=== PATIENT | male | born 1950 | race Two or more races ===

== ENCOUNTER 2017-02-04 02:29 | Inpatient (IN) | payer OTHER, MEDICAID ==
[~2017-02-04] VITALS: Ht 162.6 cm; Wt 81.3 kg
[~2017-02-04 02:29] MED LIST: ALBU18 INH; ALBUAER3 IN; ASPI81CH43 PO; FLUT110A IN; LEVO500T21 PO; LOSA50TA6 PO; METF-370 PO; MORP1TAB12 PO; OXYC325T14 PO; PREG50CA PO
[2017-02-04] MEDS ORDERED: IPRATROPIUM BROM 0.5 MG/2.5ML INH SOL NEB ONE (03:30)
[2017-02-04] MEDS ORDERED: ALBUTEROL SULF 2.5 MG/0.5ML(0.5%) NEB SOLN NEB ONE (03:30)
[2017-02-04 03:40] LABS: Basophils # (auto) 0 uL; Basophils % (auto) 0.1 % (0.0-2.0); CONDITION Y; Eosinophils # (auto) 0 uL; Eosinophils % (auto) 0.1 % (0.0-7.0); Hematocrit 35.9 % (41.0-53.0); Hemoglobin 12.4 g/dL (13.5-17.5); Lymphocytes # (auto) 0.8 uL; Lymphocytes % (auto) 5.6 % (10.0-50.0); Mean Corpuscular Hemoglobin 32.6 pg (28.0-32.0); Mean Corpuscular Hgb Conc. 34.6 g/dL (32.0-36.0); Mean Corpuscular Volume 94.3 fL (80.0-100.0); Mean Platelet Volume 7.6 fL (7.4-10.4); Monocytes # (auto) 0.5 uL; Monocytes % (auto) 3.7 % (0.0-12.0); Neutrophils # (auto) 12.8 uL; Neutrophils % (auto) 90.5 % (37.0-80.0); Platelet Count (auto) 336 10^3/uL (140-450); White Blood Cell 14.1 10^3/uL (4.4-10.8)
[2017-02-04] MEDS ORDERED: methylPREDNISolone SOD SUCC 125 MG/2 ML VL IV ONE (03:45)
[2017-02-04 03:55] LABS: Albumin 3.2 g/dL (3.4-5.0); Anion Gap 11 (5-15); Aspartate Aminotransferase 25 U/L (15-37); BUN/Creatinine Ratio 11.4; Blood Urea Nitrogen 17 mg/dL (7-18); Calcium 8.2 mg/dL (8.5-10.1); Carbon Dioxide 24 mmol/L (21-32); Chloride 107 mmol/L (98-107); GFR African American 61 mL/min; GFR Non-African American 50 mL/min; Glucose 118 mg/dL (74-106); INR 0.93 (0.9-1.15); Magnesium 1.4 mg/dL (1.6-2.6); Partial Thromboplastin Time 22.6 sec (22.64-33.71); Potassium 3.2 mmol/L (3.5-5.1); Prothrombin Time 10.1 sec (9.37-12.3); Sodium 142 mmol/L (136-145)
[2017-02-04 04:00] LABS: Alkaline Phosphatase 89 U/L (45-117); Bilirubin, Total 0.3 mg/dL (0.2-1.0); Total Protein 7.5 g/dL (6.4-8.2)
[2017-02-04] MEDS ORDERED: IOHEXOL 350 MG/ML 100ML IJ ONE (04:36)
[2017-02-04 05:38] LABS: Urine RBC None Seen /hpf (0 - 3)
[2017-02-04 05:54] LABS: Urine Bilirubin Negative (Negative); Urine Blood Negative /uL (Negative); Urine Color Yellow (Yellow); Urine Glucose Normal (Normal); Urine Ketone Negative (Negative); Urine Nitrite Negative (Negative); Urine Urobilinogen Normal (Negative); Urine pH 6.5 (5.0-8.0)
[2017-02-04] MEDS ORDERED: LEVOFLOXACIN 750MG 150 ML IV ONE (06:00)
[2017-02-04] MEDS ORDERED: NITROGLYCERIN 0.4 MG SL TAB SL PRN (06:30)
[2017-02-04] MEDS ORDERED: ALBUTEROL SULF 2.5 MG/0.5ML(0.5%) NEB SOLN NEB PRN (06:30)
[2017-02-04] MEDS ORDERED: DEXTROSE (50%) 50ML SYRG IV PRN (06:30)
[2017-02-04] MEDS ORDERED: ONDANSETRON HCL 4 MG/2 ML VIAL IV PRN (06:30)
[2017-02-04] MEDS ORDERED: MORPHINE SULF INJ 2 MG/ML SYRINGE 1ML IV PRN ×2 (06:30)
[2017-02-04] MEDS ORDERED: ACETAMINOPHEN 325 MG TAB PO PRN (06:30)
[2017-02-04] MEDS ORDERED: IPRATROPIUM BROM 0.5 MG/2.5ML INH SOL NEB PRN (06:30)
[2017-02-04] MEDS ORDERED: ENOXAPARIN SOD 100 MG/1 ML SYRINGE SC ONE (06:30)
[2017-02-04] MEDS: MAGNESIUM SULFATE 1GM/100ML 100 ML IV SCH ×2 (06:30→07:30)
[2017-02-04] MEDS ORDERED: POTASSIUM CHL 20 Meq TABLET PO ONE (06:30)
[2017-02-04] MEDS ORDERED: TEMAZEPAM 15 MG CAP PO PRN (06:30)
[2017-02-04] MEDS: LOSARTAN POTASSIUM 50 MG TAB PO SCH (10:05)
[2017-02-04] MEDS: ENOXAPARIN SOD 40 MG/0.4 ML SYRINGE SC SCH (10:06)
[2017-02-04] MEDS: FAMOTIDINE 20 MG TAB PO SCH ×2 (10:06→22:02)
[2017-02-04 10:39] VITALS: BP 110/84
[2017-02-04 11:20] VITALS: BP 120/75
[2017-02-04 11:57] VITALS: BP 120/75
[2017-02-04] MEDS: InsuLIN REG 1unit/0.01ml Soln (100units/ml) SC SCH ×2 (12:00→17:40)
[2017-02-04] MEDS: ACCU-CHEK COMFORT CURVE STRIP VI SCH ×2 (12:00→17:31)
[2017-02-04 13:35] VITALS: BP 135/75
[2017-02-04 17:12] VITALS: BP 144/81
[2017-02-04 21:51] VITALS: BP 126/77
[2017-02-05 05:24] VITALS: BP 114/69
[2017-02-05] MEDS: ACCU-CHEK COMFORT CURVE STRIP VI SCH ×5 (06:00→23:55)
[2017-02-05] MEDS: InsuLIN REG 1unit/0.01ml Soln (100units/ml) SC SCH ×5 (06:00→23:55)
[2017-02-05 06:18] LABS: CONDITION Y; Hematocrit 38.4 % (41.0-53.0); Hemoglobin 12.9 g/dL (13.5-17.5); Mean Corpuscular Hemoglobin 32.8 pg (28.0-32.0); Mean Corpuscular Hgb Conc. 33.7 g/dL (32.0-36.0); Mean Corpuscular Volume 97.3 fL (80.0-100.0); Mean Platelet Volume 8.1 fL (7.4-10.4); Platelet Count (auto) 338 10^3/uL (140-450); Red Cell Distribution Width 13.1 % (11.6-16.0); SUSPECT SEE PRINTOUT
[2017-02-05 06:21] LABS: Metamyelocytes % 0; Myelocytes % 0; Promyelocytes % 0; Reactive Lymphocytes 0
[2017-02-05] MEDS: HYDROcodone-ACET 5/325MG TAB PO PRN ×3 (06:33→21:10)
[2017-02-05 06:40] LABS: Potassium 4.7 mmol/L (3.5-5.1)
[2017-02-05 06:44] LABS: Albumin 3.2 g/dL (3.4-5.0); BUN/Creatinine Ratio 18.9; Calcium 8.9 mg/dL (8.5-10.1)
[2017-02-05 06:46] LABS: Bilirubin, Total 0.4 mg/dL (0.2-1.0)
[2017-02-05 08:58] VITALS: BP 147/86
[2017-02-05 08:58] LABS: Platelet Estimate Adequate
[2017-02-05] MEDS: FAMOTIDINE 20 MG TAB PO SCH ×2 (09:32→21:10)
[2017-02-05] MEDS: LEVOFLOXACIN 500MG 100 ML IV SCH (09:32)
[2017-02-05] MEDS: LOSARTAN POTASSIUM 50 MG TAB PO SCH (09:32)
[2017-02-05] MEDS: ENOXAPARIN SOD 40 MG/0.4 ML SYRINGE SC SCH (09:33)
[2017-02-05 13:00] VITALS: BP 143/85
[2017-02-05] MEDS ORDERED: VANCOMYCIN PER PHARMACY 0 MG IV SCH (15:00)
[2017-02-05] MEDS: VANCOMYCIN 1GM/250ML D5W 250 ML IV SCH (16:02)
[2017-02-05 17:00] VITALS: BP 145/90
[2017-02-05 22:00] VITALS: BP 149/87
[2017-02-06] MEDS: VANCOMYCIN 1GM/250ML D5W 250 ML IV SCH ×2 (03:41→15:45)
[2017-02-06] MEDS: InsuLIN REG 1unit/0.01ml Soln (100units/ml) SC SCH ×4 (05:50→23:30)
[2017-02-06] MEDS: ACCU-CHEK COMFORT CURVE STRIP VI SCH ×4 (05:50→23:30)
[2017-02-06 06:11] VITALS: BP 144/74
[2017-02-06] MEDS: HYDROcodone-ACET 5/325MG TAB PO PRN ×3 (07:49→19:57)
[2017-02-06 08:27] VITALS: BP 130/84
[2017-02-06] MEDS: LEVOFLOXACIN 500MG 100 ML IV SCH (09:49)
[2017-02-06] MEDS: FAMOTIDINE 20 MG TAB PO SCH ×2 (09:49→21:33)
[2017-02-06] MEDS: LOSARTAN POTASSIUM 50 MG TAB PO SCH (09:49)
[2017-02-06] MEDS: ENOXAPARIN SOD 40 MG/0.4 ML SYRINGE SC SCH (09:49)
[2017-02-06 13:00] VITALS: BP 152/92
[2017-02-06 13:51] LABS: Basophils # (auto) 0 uL; CONDITION Y; Eosinophils # (auto) 0.1 uL; Eosinophils % (auto) 0.8 % (0.0-7.0); Hematocrit 43.2 % (41.0-53.0); Hemoglobin 14.7 g/dL (13.5-17.5); Lymphocytes # (auto) 2.5 uL; Lymphocytes % (auto) 22.4 % (10.0-50.0); Mean Corpuscular Hemoglobin 33.4 pg (28.0-32.0); Mean Corpuscular Hgb Conc. 34.1 g/dL (32.0-36.0); Mean Corpuscular Volume 97.9 fL (80.0-100.0); Mean Platelet Volume 7.6 fL (7.4-10.4); Monocytes # (auto) 0.3 uL; Monocytes % (auto) 3.1 % (0.0-12.0); Neutrophils # (auto) 8.1 uL; Neutrophils % (auto) 73.7 % (37.0-80.0); Platelet Count (auto) 286 10^3/uL (140-450); Red Cell Distribution Width 13.6 % (11.6-16.0)
[2017-02-06 16:49] VITALS: BP 154/97
[2017-02-06] MEDS ORDERED: ALBUTEROL SULF 2.5 MG/0.5ML(0.5%) NEB SOLN NEB PRN (19:15)
[2017-02-06] MEDS ORDERED: IPRATROPIUM BROM 0.5 MG/2.5ML INH SOL NEB ONE (19:15)
[2017-02-06] MEDS ORDERED: ALBUTEROL SULF 2.5 MG/0.5ML(0.5%) NEB SOLN NEB ONE (19:15)
[2017-02-06 19:39] LABS: Basophils # (auto) 0 uL; Basophils % (auto) 0.4 % (0.0-2.0); CONDITION Y; Eosinophils # (auto) 0.1 uL; Hemoglobin 14.1 g/dL (13.5-17.5); Lymphocytes % (auto) 24.7 % (10.0-50.0); Mean Corpuscular Hemoglobin 32.8 pg (28.0-32.0); Mean Corpuscular Hgb Conc. 34.4 g/dL (32.0-36.0); Mean Corpuscular Volume 95.4 fL (80.0-100.0); Mean Platelet Volume 7.7 fL (7.4-10.4); Monocytes # (auto) 0.5 uL; Monocytes % (auto) 4.4 % (0.0-12.0); Neutrophils # (auto) 8.5 uL; Neutrophils % (auto) 69.5 % (37.0-80.0); Platelet Count (auto) 412 10^3/uL (140-450); Red Cell Distribution Width 13.2 % (11.6-16.0); White Blood Cell 12.2 10^3/uL (4.4-10.8)
[2017-02-06 21:33] VITALS: BP 135/80
[2017-02-06] MEDS: methylPREDNISolone SOD SUCC 40 MG/ML VL IV SCH (21:33)
[2017-02-07 04:08] LABS: Basophils # (auto) 0 uL; CONDITION Y; Eosinophils # (auto) 0 uL; Hematocrit 42.4 % (41.0-53.0); Hemoglobin 14.4 g/dL (13.5-17.5); Lymphocytes # (auto) 1.2 uL; Lymphocytes % (auto) 11.1 % (10.0-50.0); Mean Corpuscular Hgb Conc. 34.1 g/dL (32.0-36.0); Mean Corpuscular Volume 96.7 fL (80.0-100.0); Monocytes # (auto) 0.1 uL; Monocytes % (auto) 0.7 % (0.0-12.0); Neutrophils # (auto) 9.5 uL; Neutrophils % (auto) 88.2 % (37.0-80.0); Platelet Count (auto) 379 10^3/uL (140-450); Red Cell Distribution Width 13.4 % (11.6-16.0); White Blood Cell 10.7 10^3/uL (4.4-10.8)
[2017-02-07] MEDS: VANCOMYCIN 1GM/250ML D5W 250 ML IV SCH (04:43)
[2017-02-07 05:14] VITALS: BP 140/96
[2017-02-07] MEDS: ACCU-CHEK COMFORT CURVE STRIP VI SCH ×2 (05:47→12:00)
[2017-02-07] MEDS: methylPREDNISolone SOD SUCC 40 MG/ML VL IV SCH (05:47)
[2017-02-07] MEDS: HYDROcodone-ACET 5/325MG TAB PO PRN ×2 (05:47→10:02)
[2017-02-07] MEDS: InsuLIN REG 1unit/0.01ml Soln (100units/ml) SC SCH ×2 (05:47→12:00)
[2017-02-07] MEDS: IPRATROPIUM BROM 0.5 MG/2.5ML INH SOL NEB SCH ×2 (07:25)
[2017-02-07 08:30] VITALS: BP 161/69
[2017-02-07] MEDS: ENOXAPARIN SOD 40 MG/0.4 ML SYRINGE SC SCH (10:01)
[2017-02-07] MEDS: LEVOFLOXACIN 500MG 100 ML IV SCH (10:01)
[2017-02-07] MEDS: LOSARTAN POTASSIUM 50 MG TAB PO SCH (10:01)
[2017-02-07] MEDS: FAMOTIDINE 20 MG TAB PO SCH (10:01)
[2017-02-07] MEDS ORDERED: DOXY-216 PO (10:51)
[2017-02-07] MEDS ORDERED: LEVO750T64 PO (10:51)
[2017-02-07] MEDS ORDERED: VANCOMYCIN 1,250 MG in D5W 5% 250 ML IV SCH (16:00)
== END 2017-02-07 12:44 | disposition home or self-care (01) | DRG 871 ==
LOC: ER 02:29 → EDBD 02:29 → TELE 02:30 → TELE-E-ADS 10:45 → TELE-WESTW 13:59 → WEST WING 02-06 02:13
PROVIDERS: ADMIT Nurse Practitioner; ATTEND Internal Medicine
DX: A41.9 Sepsis, unspecified organism (principal); J18.1 Lobar pneumonia, unspecified organism; J96.00 Acute respiratory failure, unspecified whether with hypoxia or hypercapnia; E44.1 Mild protein-calorie malnutrition; J45.901 Unspecified asthma with (acute) exacerbation; J44.0 Chronic obstructive pulmonary disease with (acute) lower respiratory infection; J44.1 Chronic obstructive pulmonary disease with (acute) exacerbation; J98.11 Atelectasis; E66.9 Obesity, unspecified; K70.30 Alcoholic cirrhosis of liver without ascites; B19.20 Unspecified viral hepatitis C without hepatic coma; E11.21 Type 2 diabetes mellitus with diabetic nephropathy; E11.65 Type 2 diabetes mellitus with hyperglycemia; E78.5 Hyperlipidemia, unspecified; E83.42 Hypomagnesemia; E87.6 Hypokalemia; I12.9 Hypertensive chronic kidney disease with stage 1 through stage 4 chronic kidney disease, or unspecified chronic kidney disease; J06.9 Acute upper respiratory infection, unspecified; M19.90 Unspecified osteoarthritis, unspecified site; E78.00 Pure hypercholesterolemia, unspecified; K44.9 Diaphragmatic hernia without obstruction or gangrene; E87.8 Other disorders of electrolyte and fluid balance, not elsewhere classified; K76.0 Fatty (change of) liver, not elsewhere classified; N18.3 Chronic kidney disease, stage 3 (moderate); E11.22 Type 2 diabetes mellitus with diabetic chronic kidney disease; T38.0X5A Adverse effect of glucocorticoids and synthetic analogues, initial encounter; Z68.30 Body mass index [BMI] 30.0-30.9, adult; Z83.3 Family history of diabetes mellitus; Z80.9 Family history of malignant neoplasm, unspecified; Z72.89 Other problems related to lifestyle
CPT/HCPCS: 36415; 71010; 71020; 71275; 80053; 80202; 81001; 82962; 83735; 84132; 84484; 85007; 85025; 85027; 85379; 85610; 85730; 87040; 93005; 94640; 94761; 96365; 96366; 96375; J1815; J1956; J7060

== ENCOUNTER 2017-03-16 05:51 | Inpatient (IN) | payer OTHER, MEDICAID ==
[~2017-03-16] VITALS: Ht 153.9 cm; Wt 82.4 kg
[~2017-03-16 05:51] MED LIST changes: +DOXY-216 PO; -LEVO500T21 PO; +LEVO750T64 PO
[2017-03-16 06:52] LABS: Basophils # (auto) 0 uL; Basophils % (auto) 0.2 % (0.0-2.0); CONDITION Y; Eosinophils # (auto) 0 uL; Eosinophils % (auto) 0.3 % (0.0-7.0); Hematocrit 38.3 % (41.0-53.0); Hemoglobin 13.6 g/dL (13.5-17.5); Lymphocytes # (auto) 0.8 uL; Lymphocytes % (auto) 5.8 % (10.0-50.0); Mean Corpuscular Hemoglobin 33.7 pg (28.0-32.0); Mean Corpuscular Hgb Conc. 35.7 g/dL (32.0-36.0); Mean Corpuscular Volume 94.6 fL (80.0-100.0); Mean Platelet Volume 7.4 fL (7.4-10.4); Monocytes # (auto) 0.5 uL; Monocytes % (auto) 3.4 % (0.0-12.0); Neutrophils # (auto) 12.3 uL; Neutrophils % (auto) 90.3 % (37.0-80.0); Platelet Count (auto) 263 10^3/uL (140-450); Red Cell Distribution Width 13.1 % (11.6-16.0); White Blood Cell 13.6 10^3/uL (4.4-10.8)
[2017-03-16 06:59] LABS: INR 0.92 (0.9-1.15); Partial Thromboplastin Time 22.2 sec (22.64-33.71)
[2017-03-16 07:18] LABS: Alkaline Phosphatase 109 U/L (45-117); Anion Gap 10 (5-15); Aspartate Aminotransferase 59 U/L (15-37); Blood Urea Nitrogen 9 mg/dL (7-18); Carbon Dioxide 22 mmol/L (21-32); Chloride 107 mmol/L (98-107); GFR African American 96 mL/min; GFR Non-African American 80 mL/min; Glucose 139 mg/dL (74-106); Sodium 139 mmol/L (136-145)
[2017-03-16 07:19] LABS: Albumin 3.5 g/dL (3.4-5.0); Bilirubin, Total 0.5 mg/dL (0.2-1.0); Calcium 8.7 mg/dL (8.5-10.1); Magnesium 1.5 mg/dL (1.6-2.6); Total Protein 7.6 g/dL (6.4-8.2)
[2017-03-16] MEDS ORDERED: SODIUM CHLORIDE 0.9% 1,000 ML IV ONE (07:27)
[2017-03-16 07:55] LABS: Urine Bilirubin Negative (Negative); Urine Blood Negative /uL (Negative); Urine Color Yellow (Yellow); Urine Glucose Normal (Normal); Urine Ketone Negative (Negative); Urine Nitrite Negative (Negative); Urine RBC <1 /hpf (0 - 3); Urine Urobilinogen Normal (Negative)
[2017-03-16] MEDS: POTASSIUM CHL 20MEQ/100ML 100 ML IV SCH ×2 (09:00→11:03)
[2017-03-16] MEDS: SODIUM CHLORIDE 0.9% 1,000 ML IV SCH (13:15)
[2017-03-16] MEDS: MAGNESIUM SULFATE 1GM/100ML 100 ML IV SCH ×2 (13:20→14:54)
[2017-03-16] MEDS ORDERED: MORPHINE SULF INJ 2 MG/ML SYRINGE 1ML IV PRN (13:45)
[2017-03-16] MEDS ORDERED: LACTULOSE 20Gm/30ML SOLN PO PRN (13:45)
[2017-03-16] MEDS ORDERED: ALBUTEROL SULF 2.5 MG/0.5ML(0.5%) NEB SOLN NEB PRN (13:45)
[2017-03-16] MEDS ORDERED: LORazepam 2MG/ML-1ML VIAL IV PRN (13:45)
[2017-03-16] MEDS ORDERED: MORPHINE SULFATE 4 MG/ML SYRG IV PRN (13:45)
[2017-03-16] MEDS ORDERED: PROMETHAZINE HCL 25 MG/ML 1ML IV PRN (13:45)
[2017-03-16] MEDS ORDERED: NITROGLYCERIN 0.4 MG SL TAB SL PRN (13:45)
[2017-03-16] MEDS ORDERED: DEXTROSE (50%) 50ML SYRG IV PRN (13:45)
[2017-03-16 14:04] LABS: Allen Test Yes; Base Excess -0.5 mmol/L (-2.0-2.0); Blood 02Sat 94.8 % (96-100); Blood COHb 0.3 % (0.5-1.5); Blood MetHb 0.3 % (0.0-1.5); HCO3 24.4 mmol/L (22-26.0); HHb 5.2 % (0.0-5.0); MODE NASAL CANNULA; O2Hb 94.2 % (94.0-97.0); PCO2 40.8 mmHg (35.0-45.0); PCO2(T) 40.8 mmHg (35.0-45.0); PO2 78.3 mmHg (80.0-100.0); PO2(T) 78.3 mmHg (80.0-100.0); Room 1020-ERT; Sample Type Arterial; pH 7.394 (7.350-7.450)
[2017-03-16 15:18] LABS: Temperature: 20.3 C (20.0-25.0)
[2017-03-16 16:39] VITALS: BP 126/80
[2017-03-16] MEDS: InsuLIN REG 1unit/0.01ml Soln (100units/ml) SC SCH (17:43)
[2017-03-16] MEDS: ACCU-CHEK COMFORT CURVE STRIP VI SCH (17:43)
[2017-03-16] MEDS: MORPHINE SULF INJ 2 MG/ML SYRINGE 1ML IV PRN (17:44)
[2017-03-16 18:10] VITALS: BP 138/81
[2017-03-16] MEDS: ALBUTEROL SULF 2.5 MG/0.5ML(0.5%) NEB SOLN NEB SCH (18:53)
[2017-03-16 20:30] VITALS: BP 138/81
[2017-03-16] MEDS ORDERED: CYANOCOBALAMIN (B-12) 1000 MCG/1 ML VIAL IM ONE (21:45)
[2017-03-16] MEDS ORDERED: HALOPERIDOL LACTATE 5 MG/ML INJ VIAL IM PRN (21:45)
[2017-03-16] MEDS: ATORVASTATIN 20 MG TAB PO SCH (21:53)
[2017-03-16 22:00] VITALS: BP 128/72
[2017-03-17] MEDS: SODIUM CHLORIDE 0.9% 1,000 ML IV SCH ×2 (02:04→14:34)
[2017-03-17 05:00] VITALS: BP 133/62
[2017-03-17] MEDS: ACCU-CHEK COMFORT CURVE STRIP VI SCH ×4 (06:00→16:46)
[2017-03-17] MEDS: InsuLIN REG 1unit/0.01ml Soln (100units/ml) SC SCH ×4 (06:00→17:43)
[2017-03-17 06:34] LABS: Basophils # (auto) 0 uL; Basophils % (auto) 0.4 % (0.0-2.0); CONDITION Y; Eosinophils # (auto) 0.1 uL; Eosinophils % (auto) 0.7 % (0.0-7.0); Hematocrit 36.3 % (41.0-53.0); Hemoglobin 12.6 g/dL (13.5-17.5); Lymphocytes % (auto) 14.7 % (10.0-50.0); Mean Corpuscular Hemoglobin 33.3 pg (28.0-32.0); Mean Corpuscular Hgb Conc. 34.7 g/dL (32.0-36.0); Mean Corpuscular Volume 95.9 fL (80.0-100.0); Mean Platelet Volume 7.6 fL (7.4-10.4); Monocytes # (auto) 0.7 uL; Monocytes % (auto) 4.8 % (0.0-12.0); Neutrophils # (auto) 10.9 uL; Neutrophils % (auto) 79.4 % (37.0-80.0); Platelet Count (auto) 237 10^3/uL (140-450); Red Cell Distribution Width 13.3 % (11.6-16.0); White Blood Cell 13.7 10^3/uL (4.4-10.8)
[2017-03-17] MEDS: MORPHINE SULF INJ 2 MG/ML SYRINGE 1ML IV PRN ×2 (06:52→10:57)
[2017-03-17 07:15] LABS: Albumin 3.1 g/dL (3.4-5.0); BUN/Creatinine Ratio 11.4; Bilirubin, Total 0.5 mg/dL (0.2-1.0); Potassium 3.7 mmol/L (3.5-5.1); Total Protein 7.2 g/dL (6.4-8.2)
[2017-03-17] MEDS: ALBUTEROL SULF 2.5 MG/0.5ML(0.5%) NEB SOLN NEB SCH ×3 (07:34→18:55)
[2017-03-17 08:00] VITALS: BP 138/81
[2017-03-17 09:00] VITALS: BP 134/88
[2017-03-17] MEDS: CYANOCOBALAMIN 500 MCG TAB PO SCH (10:00)
[2017-03-17] MEDS: ENOXAPARIN SOD 40 MG/0.4 ML SYRINGE SC SCH (10:01)
[2017-03-17] MEDS: ASPirin 81 mg TAB PO SCH (10:01)
[2017-03-17] MEDS: FOLIC ACID 1 MG in D5W 5% 50 ML IV SCH (11:03)
[2017-03-17 12:55] VITALS: BP 130/84
[2017-03-17 17:00] VITALS: BP 152/96
[2017-03-17] MEDS ORDERED: traMADol HCL 50 MG TAB PO PRN (17:30)
[2017-03-17] MEDS: KETOROLAC TROMETH 30 MG/ML 1ML VIAL IV PRN (20:24)
[2017-03-17] MEDS: ATORVASTATIN 20 MG TAB PO SCH (21:50)
[2017-03-17 22:00] VITALS: BP 139/88
[2017-03-18] MEDS: ACCU-CHEK COMFORT CURVE STRIP VI SCH ×3 (00:03→12:00)
[2017-03-18] MEDS: ALBUTEROL SULF 2.5 MG/0.5ML(0.5%) NEB SOLN NEB SCH ×3 (00:25→12:01)
[2017-03-18] MEDS: SODIUM CHLORIDE 0.9% 1,000 ML IV SCH ×2 (03:04→15:34)
[2017-03-18] MEDS: KETOROLAC TROMETH 30 MG/ML 1ML VIAL IV PRN (04:10)
[2017-03-18 05:02] VITALS: BP 137/86
[2017-03-18] MEDS: InsuLIN REG 1unit/0.01ml Soln (100units/ml) SC SCH ×3 (05:55→12:00)
[2017-03-18 08:00] VITALS: BP 127/74
[2017-03-18] MEDS: ENOXAPARIN SOD 40 MG/0.4 ML SYRINGE SC SCH (09:59)
[2017-03-18] MEDS: CYANOCOBALAMIN 500 MCG TAB PO SCH (09:59)
[2017-03-18] MEDS: ASPirin 81 mg TAB PO SCH (09:59)
[2017-03-18] MEDS: FOLIC ACID 1 MG in D5W 5% 50 ML IV SCH (10:08)
[2017-03-18 10:27] VITALS: BP 141/84
[2017-03-18 13:31] VITALS: BP 151/95
[2017-03-18 14:26] VITALS: BP 151/95
== END 2017-03-18 16:15 | disposition home or self-care (01) | DRG 92 ==
LOC: EDBD 05:51 → ER 05:57 → TELE 05:58 → TELE-E-ADS 15:58 → TELE-WESTW 17:32
PROVIDERS: ADMIT Internal Medicine; ATTEND Internal Medicine Pulmonary Disease
DX: G92 Toxic encephalopathy (principal); E44.1 Mild protein-calorie malnutrition; E87.6 Hypokalemia; J44.9 Chronic obstructive pulmonary disease, unspecified; M19.90 Unspecified osteoarthritis, unspecified site; E11.22 Type 2 diabetes mellitus with diabetic chronic kidney disease; N18.9 Chronic kidney disease, unspecified; I12.9 Hypertensive chronic kidney disease with stage 1 through stage 4 chronic kidney disease, or unspecified chronic kidney disease; E66.9 Obesity, unspecified; E78.5 Hyperlipidemia, unspecified; B19.20 Unspecified viral hepatitis C without hepatic coma; I70.0 Atherosclerosis of aorta; E83.42 Hypomagnesemia; F17.200 Nicotine dependence, unspecified, uncomplicated; F10.10 Alcohol abuse, uncomplicated; F41.9 Anxiety disorder, unspecified; M54.9 Dorsalgia, unspecified; R44.1 Visual hallucinations; T40.605A Adverse effect of unspecified narcotics, initial encounter; D72.829 Elevated white blood cell count, unspecified; Z88.6 Allergy status to analgesic agent; Z88.2 Allergy status to sulfonamides; Z83.3 Family history of diabetes mellitus; Z88.8 Allergy status to other drugs, medicaments and biological substances; Z68.34 Body mass index [BMI] 34.0-34.9, adult
CPT/HCPCS: 36415; 36600; 70450; 71010; 80053; 80307; 80320; 81001; 82140; 82550; 82607; 82746; 82805; 82962; 83036; 83605; 83735; 84443; 84484; 85025; 85610; 85652; 85730; 92610; 93005; 93306; 93886; 94640; 94761; 95819; 96361; 96365; 96367; J1885; J3480; J7060

== ENCOUNTER 2018-09-23 18:57 | Emergency (ER) | payer OTHER, MEDICAID ==
[~2018-09-23] VITALS: Ht 154.9 cm; Wt 88.0 kg
[~2018-09-23 18:57] MED LIST changes: +LOSA-46 PO; -LOSA50TA6 PO; -MORP1TAB12 PO; -OXYC325T14 PO
[2018-09-23 19:13] VITALS: BP 131/86
== END 2018-09-23 23:06 | disposition left against medical advice (07) ==
LOC: ER 19:00
DX: R06.02 Shortness of breath (principal); Z53.21 Procedure and treatment not carried out due to patient leaving prior to being seen by health care provider
CPT/HCPCS: 71045; 93005

== ENCOUNTER 2019-08-05 18:56 | Emergency (ER) | payer OTHER, MEDICAID ==
[~2019-08-05] VITALS: Ht 162.6 cm; Wt 87.1 kg
[~2019-08-05 18:56] MED LIST changes: -DOXY-216 PO; +DOXY-286 PO; -LOSA-46 PO; +LOSA-69 PO
[2019-08-05 19:04] VITALS: BP 147/72
[2019-08-05 19:25] LABS: Basophils # (auto) 0 uL; Basophils % (auto) 0.5 % (0.0-2.0); Eosinophils # (auto) 0.3 uL; Eosinophils % (auto) 4.4 % (0.0-7.0); Hematocrit 38.7 % (41.0-53.0); Hemoglobin 13.3 g/dL (13.5-17.5); Lymphocytes # (auto) 2.5 uL; Lymphocytes % (auto) 39.6 % (10.0-50.0); Mean Corpuscular Hemoglobin 33.1 pg (28.0-32.0); Mean Corpuscular Hgb Conc. 34.5 g/dL (32.0-36.0); Mean Corpuscular Volume 95.9 fL (80.0-100.0); Monocytes # (auto) 0.6 uL; Monocytes % (auto) 9.7 % (0.0-12.0); Neutrophils # (auto) 2.9 uL; Neutrophils % (auto) 45.8 % (37.0-80.0); Nucleated Red Blood Cells % 0.2 %; Platelet Count (auto) 317 10^3/uL (140-450); Red Blood Cells 4.03 10^6/uL (4.5-5.90); Red Cell Distribution Width 12.6 % (11.8-14.3); White Blood Cell 6.2 10^3/uL (4.4-10.8)
[2019-08-05 19:39] LABS: Alanine Aminotransferase 24 U/L (16-61); Albumin 3.4 g/dL (3.4-5.0); Anion Gap 6 (5-15); Aspartate Aminotransferase 15 U/L (15-37); BUN/Creatinine Ratio 21.3; Blood Urea Nitrogen 19 mg/dL (7-18); Calcium 8.8 mg/dL (8.5-10.1); Carbon Dioxide 27 mmol/L (21-32); Chloride 108 mmol/L (98-107); GFR African American 109 mL/min; GFR Non-African American 90 mL/min; Glucose 108 mg/dL (74-106); Potassium 3.7 mmol/L (3.5-5.1); Sodium 141 mmol/L (136-145)
[2019-08-05 19:44] LABS: Alkaline Phosphatase 94 U/L (45-117); Bilirubin, Total 0.2 mg/dL (0.2-1.0); Total Protein 8.2 g/dL (6.4-8.2)
[2019-08-06 00:29] LABS: Urine Bacteria NONE SEEN /hpf (None Seen); Urine Blood Negative /uL (Negative); Urine Mucus FEW (None Seen); Urine Specific Gravity 1.026 (1.001-1.035); Urine WBC 2 /hpf (0 - 3)
== END 2019-08-06 01:15 | disposition home or self-care (01) ==
LOC: ER 18:57
DX: J06.9 Acute upper respiratory infection, unspecified (principal); J44.9 Chronic obstructive pulmonary disease, unspecified; I10 Essential (primary) hypertension; E11.9 Type 2 diabetes mellitus without complications; M19.90 Unspecified osteoarthritis, unspecified site
CPT/HCPCS: 36415; 71046; 80053; 81001; 84484; 85025; 93005

== ENCOUNTER 2020-03-24 08:26 | Inpatient (IN) | payer OTHER, MEDICAID ==
[~2020-03-24] VITALS: Ht 165.1 cm; Wt 92.1 kg
[2020-03-24] MEDS ORDERED: ACETAMINOPHEN 500 MG TAB PO ONE (08:30)
[2020-03-24] MEDS ORDERED: DexAMETHasone SOD PHOS 10MG/1ML VIAL INJ IV ONE (08:45)
[2020-03-24] MEDS ORDERED: cefTRIAXone 1GM/50ML D5W 50 ML IV ONE ×2 (08:45→12:15)
[2020-03-24 08:59] LABS: Basophils # (auto) 0 10 ^3/uL (0-0.2); Basophils % (auto) 0.3 % (0.0-2.0); Eosinophils # (auto) 0 10 ^3/uL (0-0.8); Eosinophils % (auto) 0.3 % (0.0-7.0); Hematocrit 40.1 % (41.0-53.0); Hemoglobin 13.4 g/dL (13.5-17.5); Lymphocytes % (auto) 6.7 % (10.0-50.0); Mean Corpuscular Hemoglobin 32.1 pg (28.0-32.0); Mean Corpuscular Hgb Conc. 33.5 g/dL (32.0-36.0); Mean Corpuscular Volume 95.8 fL (80.0-100.0); Monocytes # (auto) 0.7 10 ^3/uL (0-1.3); Monocytes % (auto) 4.9 % (0.0-12.0); Neutrophils # (auto) 13.1 10 ^3/uL (1.6-8.6); Neutrophils % (auto) 87.8 % (37.0-80.0); Platelet Count (auto) 254 10^3/uL (140-450); Red Blood Cells 4.18 10^6/uL (4.5-5.90); Red Cell Distribution Width 12.9 % (11.8-14.3); White Blood Cell 14.9 10^3/uL (4.4-10.8)
[2020-03-24 09:14] LABS: INR 0.95 (0.9-1.15)
[2020-03-24 09:24] LABS: Albumin 3.4 g/dL (3.4-5.0); Anion Gap 6 (5-15); Blood Urea Nitrogen 16 mg/dL (7-18); Calcium 8.9 mg/dL (8.5-10.1); Carbon Dioxide 25 mmol/L (21-32); Chloride 105 mmol/L (98-107); Glucose 151 mg/dL (74-106); Magnesium 1.9 mg/dL (1.6-2.6); Potassium 3.7 mmol/L (3.5-5.1); Sodium 136 mmol/L (136-145)
[2020-03-24 09:32] LABS: Alanine Aminotransferase 23 U/L (16-61); Alkaline Phosphatase 91 U/L (45-117); Aspartate Aminotransferase 17 U/L (15-37); BUN/Creatinine Ratio 13.8; Bilirubin, Total 0.5 mg/dL (0.2-1.0); CRP High Sensitivity 0.67 mg/dL (< 0.3); GFR African American 81 mL/min; GFR Non-African American 67 mL/min; Lactate Dehydrogenase 184 U/L (87-241); Total Protein 8.2 g/dL (6.4-8.2)
[2020-03-24 10:23] LABS: Urine Bacteria NONE SEEN /hpf (None Seen); Urine Blood TRACE /uL (Negative); Urine Specific Gravity 1.013 (1.001-1.035); Urine WBC 1 /hpf (0 - 3)
[2020-03-24] MEDS ORDERED: hydrALAZINE HCL 20 MG/ML VL IV PRN (11:45)
[2020-03-24] MEDS ORDERED: SPIRONOLACTONE 25 MG TAB PO ONE ×2 (11:45→12:15)
[2020-03-24] MEDS ORDERED: ONDANSETRON HCL 4 MG/2 ML VIAL IV PRN (12:00)
[2020-03-24] MEDS ORDERED: DOCUSATE SOD 100 MG CAP PO PRN (12:00)
[2020-03-24] MEDS ORDERED: ACETAMINOPHEN 500 MG TAB PO PRN (12:00)
[2020-03-24] MEDS ORDERED: DEXTROSE (50%) 50ML SYRG IV PRN (12:00)
[2020-03-24] MEDS ORDERED: MORPHINE SULF INJ 2 MG/ML SYRINGE 1ML IV PRN ×2 (12:00)
[2020-03-24] MEDS ORDERED: NITROGLYCERIN 0.4 MG SL TAB SL PRN (12:00)
[2020-03-24] MEDS ORDERED: LORazepam 0.5 MG TAB PO PRN (12:00)
[2020-03-24] MEDS: DULoxetine HCL 30 MG CAP PO ONE ×2 (12:15→12:39)
[2020-03-24] MEDS ORDERED: LOSARTAN POTASSIUM 50 MG TAB PO ONE (12:15)
[2020-03-24] MEDS ORDERED: ZINC SULFATE 220mg CAP or TAB PO ONE (12:15)
[2020-03-24] MEDS ORDERED: CHOLECALCIFEROL (VITD3) 2,000 UNIT CAP PO ONE (12:15)
[2020-03-24] MEDS ORDERED: ASCORBIC ACID 1,000 MG TAB PO ONE (12:15)
[2020-03-24] MEDS ORDERED: ASPirin 81 mg TAB PO ONE (12:15)
[2020-03-24] MEDS ORDERED: LOSA-39 PO (12:52)
[2020-03-24] MEDS ORDERED: ACET-6 PO (12:52)
[2020-03-24] MEDS ORDERED: BECL40AE11 IN (12:53)
[2020-03-24] MEDS ORDERED: DOCU1CAP31 PO (12:54)
[2020-03-24] MEDS ORDERED: SENN1TAB14 PO (12:55)
[2020-03-24] MEDS ORDERED: MORP1TAB12 PO (12:56)
[2020-03-24] MEDS ORDERED: OXYC325T14 PO (12:57)
[2020-03-24] MEDS ORDERED: DICL1GEL50 TD (12:58)
[2020-03-24] MEDS ORDERED: DULO1CAP4 PO (12:58)
[2020-03-24] MEDS: HYDROcodone-ACET 5/325MG TAB PO PRN (13:05)
[2020-03-24] MEDS ORDERED: ALBUTEROL SULF HFA 90MCG INH 200DOSE IN SCH (14:00)
[2020-03-24] MEDS ORDERED: GABAPENTIN 300 MG CAP PO SCH (14:00)
[2020-03-24] MEDS: GABAPENTIN 300 MG CAP PO SCH ×2 (14:03→21:46)
[2020-03-24 16:34] LABS: Alcohol, Urine < 3.0 mg/dL (0-10); Amphetamine Screen, Urine NEGATIVE (NEGATIVE); Barbiturate Scree,Urine NEGATIVE (NEGATIVE); Benzodiazephine Screen, Urine NEGATIVE (NEGATIVE); Cannabinoid Screen, Urine NEGATIVE (NEGATIVE); Cocaine Screen, Urine NEGATIVE (NEGATIVE); Opiate Scree,Urine POSITIVE (NEGATIVE); Phencyclidine Screen, Urine NEGATIVE (NEGATIVE)
[2020-03-24] MEDS: ACCU-CHEK COMFORT CURVE STRIP VI SCH ×2 (17:00→21:46)
--- NOTE | 2020-03-24 17:00 | NUR ---
Telemetry admit from [facility] admitted to Telemetry unit after SBAR received. Patient oriented to Nuha chow RN, unit, room, bed, and unit policies regarding patient care and visiting hours. Patient now on continuous telemetry monitoring, tele box # 39 and telemetry reading on arrival to unit is 88. Patient placed on bedside oxygen at 4L NC, weighed by bedscale and encouraged to call if they need something. All questions and concerns addressed, patient verbalized understanding.
[2020-03-24 18:20] LABS: Cholesterol 181 mg/dL (< 200)
[2020-03-24] MEDS: InsuLIN REG 1unit/0.01ml Soln (100units/ml) SC SCH ×2 (18:24→21:48)
[2020-03-24 18:28] LABS: HDL Cholesterol 54 mg/dL (40-59); LDL Cholesterol 126 mg/dL (< 100); Triglycerides 46 mg/dL (< 150)
[2020-03-24 20:00] VITALS: BP 153/89
[2020-03-24] MEDS ORDERED: BUDESONIDE (INHALATION) 180 MCG IH IN SCH (22:00)
[2020-03-24 23:16] VITALS: BP 153/89
[2020-03-25] VITALS (7 sets, daily range): BP systolic 140–157; BP diastolic 82–96
[2020-03-25] MEDS: ACCU-CHEK COMFORT CURVE STRIP VI SCH ×4 (06:05→21:21)
[2020-03-25] MEDS: GABAPENTIN 300 MG CAP PO SCH ×3 (06:05→21:20)
[2020-03-25] MEDS: InsuLIN REG 1unit/0.01ml Soln (100units/ml) SC SCH ×4 (06:05→21:20)
[2020-03-25 06:26] LABS: Basophils # (auto) 0 10 ^3/uL (0-0.2); Eosinophils # (auto) 0 10 ^3/uL (0-0.8); Hematocrit 38.7 % (41.0-53.0); Hemoglobin 13.8 g/dL (13.5-17.5); Lymphocytes # (auto) 1.4 10 ^3/uL (0.4-5.4); Lymphocytes % (auto) 8.7 % (10.0-50.0); Mean Corpuscular Hgb Conc. 35.6 g/dL (32.0-36.0); Mean Corpuscular Volume 95.7 fL (80.0-100.0); Monocytes # (auto) 0.6 10 ^3/uL (0-1.3); Neutrophils # (auto) 14.3 10 ^3/uL (1.6-8.6); Neutrophils % (auto) 87.3 % (37.0-80.0); Nucleated Red Blood Cells % 0.1 %; Platelet Count (auto) 242 10^3/uL (140-450); Red Blood Cells 4.05 10^6/uL (4.5-5.90); Red Cell Distribution Width 12.6 % (11.8-14.3); White Blood Cell 16.4 10^3/uL (4.4-10.8)
[2020-03-25 06:36] LABS: Albumin 2.9 g/dL (3.4-5.0); Calcium 8.7 mg/dL (8.5-10.1); Potassium 3.9 mmol/L (3.5-5.1)
[2020-03-25 06:40] LABS: Bilirubin, Total 0.6 mg/dL (0.2-1.0); Total Protein 7.6 g/dL (6.4-8.2)
--- NOTE | 2020-03-25 07:28 | NUR ---
received patient from [facility] shift rn. Patient asleep been easily aroused. patient is alert and oriented, slight signs of forgetfulness noted. Plan of care discussed. Bed in low and locked position, call light and phone within reach. Patient remains on 2L NC. will continue to monitor q1hr and prn.
[2020-03-25] MEDS: HYDROcodone-ACET 5/325MG TAB PO PRN ×2 (08:22→19:57)
[2020-03-25] MEDS ORDERED: cefTRIAXone 1GM/50ML D5W 50 ML IV SCH (09:00)
[2020-03-25] MEDS: LOSARTAN POTASSIUM 50 MG TAB PO SCH (09:49)
[2020-03-25] MEDS: ASPirin 81 mg TAB PO SCH (09:49)
[2020-03-25] MEDS: SPIRONOLACTONE 25 MG TAB PO SCH (09:50)
[2020-03-25] MEDS: DULoxetine HCL 30 MG CAP PO SCH (09:50)
[2020-03-25] MEDS ORDERED: ASCORBIC ACID 1,000 MG TAB PO SCH (10:00)
[2020-03-25] MEDS ORDERED: AZITHROMYCIN 500MG/ 250ML 250 ML IV SCH (10:00)
[2020-03-25] MEDS ORDERED: ZINC SULFATE 220mg CAP or TAB PO SCH (10:00)
[2020-03-25] MEDS ORDERED: CHOLECALCIFEROL (VITD3) 2,000 UNIT CAP PO SCH (10:00)
--- NOTE | 2020-03-25 15:00 | NUR ---
Orthostatic blood pressure as ordered by Dr. Damon Standing 157/104 sitting 151/73 laying down 155/83
[2020-03-25] MEDS ORDERED: IOHEXOL 350 MG/ML 100ML IJ ONE (16:28)
[2020-03-25] MEDS: APIXABAN 5 MG TAB PO SCH (19:38)
[2020-03-26] MEDS: APIXABAN 5 MG TAB PO SCH ×2 (05:04→17:28)
[2020-03-26] MEDS: GABAPENTIN 300 MG CAP PO SCH ×2 (05:04→14:32)
[2020-03-26] MEDS: HYDROcodone-ACET 5/325MG TAB PO PRN ×3 (05:05→15:50)
[2020-03-26] MEDS: ACCU-CHEK COMFORT CURVE STRIP VI SCH ×3 (05:12→17:00)
[2020-03-26] MEDS: InsuLIN REG 1unit/0.01ml Soln (100units/ml) SC SCH ×3 (05:13→17:00)
[2020-03-26 05:56] LABS: Basophils # (auto) 0 10 ^3/uL (0-0.2); Basophils % (auto) 0.1 % (0.0-2.0); Eosinophils # (auto) 0 10 ^3/uL (0-0.8); Eosinophils % (auto) 0.1 % (0.0-7.0); Hematocrit 39.6 % (41.0-53.0); Hemoglobin 13.5 g/dL (13.5-17.5); Lymphocytes # (auto) 2.6 10 ^3/uL (0.4-5.4); Lymphocytes % (auto) 17.4 % (10.0-50.0); Mean Corpuscular Hemoglobin 32.7 pg (28.0-32.0); Mean Corpuscular Hgb Conc. 34.1 g/dL (32.0-36.0); Mean Corpuscular Volume 95.9 fL (80.0-100.0); Monocytes # (auto) 0.6 10 ^3/uL (0-1.3); Monocytes % (auto) 4.3 % (0.0-12.0); Neutrophils # (auto) 11.6 10 ^3/uL (1.6-8.6); Neutrophils % (auto) 78.1 % (37.0-80.0); Nucleated Red Blood Cells % 0.1 %; Platelet Count (auto) 281 10^3/uL (140-450); Red Blood Cells 4.13 10^6/uL (4.5-5.90); White Blood Cell 14.8 10^3/uL (4.4-10.8)
[2020-03-26 06:18] LABS: Albumin 3.1 g/dL (3.4-5.0); Calcium 8.5 mg/dL (8.5-10.1); Potassium 3.8 mmol/L (3.5-5.1)
[2020-03-26 06:22] LABS: BUN/Creatinine Ratio 21.4; Bilirubin, Total 0.3 mg/dL (0.2-1.0); Total Protein 7.6 g/dL (6.4-8.2)
[2020-03-26 09:00] VITALS: BP 142/95
[2020-03-26] MEDS: DULoxetine HCL 30 MG CAP PO SCH (09:27)
[2020-03-26] MEDS: ASPirin 81 mg TAB PO SCH (09:27)
[2020-03-26] MEDS: SPIRONOLACTONE 25 MG TAB PO SCH (09:27)
[2020-03-26] MEDS: LOSARTAN POTASSIUM 50 MG TAB PO SCH (09:29)
[2020-03-26] MEDS ORDERED: APIX5TAB PO (10:17)
[2020-03-26 13:00] VITALS: BP 144/92
[2020-03-26 13:02] VITALS: BP 142/95
--- NOTE | 2020-03-26 15:50 | NUR ---
Ready to DC pt. Waiting for family to arrive for pickup.
--- NOTE | 2020-03-26 17:20 | NUR ---
Discharge instructions given as ordered. Encourage to follow up with PMD as instructed. All questions and concerns addressed. Patient verbalized understanding. Medication reconciliation form completed and copy given to patient. IV removed with catheter intact, pressure dressing applied, shipman catheter removed. Telemetry unit returned to ICU. Patient taken to vehicle via wheelchair with all personal belongings, accompanied by staff and family member. No distress noted at time of departure.
[2020-04-01] MEDS ORDERED: APIXABAN 5 MG TAB PO SCH (18:00)
== END 2020-03-26 17:20 | disposition home or self-care (01) | DRG 871 ==
LOC: ER 08:26 → EDBD 08:26 → TELE 08:27 → TELE-CENTR 17:00
PROVIDERS: ADMIT Hospitalist; ATTEND Internal Medicine
DX: A41.9 Sepsis, unspecified organism (principal); J96.00 Acute respiratory failure, unspecified whether with hypoxia or hypercapnia; I26.99 Other pulmonary embolism without acute cor pulmonale; E44.0 Moderate protein-calorie malnutrition; F11.20 Opioid dependence, uncomplicated; J98.11 Atelectasis; B18.2 Chronic viral hepatitis C; E11.40 Type 2 diabetes mellitus with diabetic neuropathy, unspecified; Z20.828 Contact with and (suspected) exposure to other viral communicable diseases; F41.9 Anxiety disorder, unspecified; M19.90 Unspecified osteoarthritis, unspecified site; I12.9 Hypertensive chronic kidney disease with stage 1 through stage 4 chronic kidney disease, or unspecified chronic kidney disease; E66.9 Obesity, unspecified; N18.9 Chronic kidney disease, unspecified; K76.0 Fatty (change of) liver, not elsewhere classified; K80.20 Calculus of gallbladder without cholecystitis without obstruction; E11.22 Type 2 diabetes mellitus with diabetic chronic kidney disease; G89.29 Other chronic pain; Z79.84 Long term (current) use of oral hypoglycemic drugs; Z83.3 Family history of diabetes mellitus; Z79.82 Long term (current) use of aspirin; Z68.33 Body mass index [BMI] 33.0-33.9, adult; Z79.899 Other long term (current) drug therapy
CPT/HCPCS: 36415; 71045; 71275; 76700; 80053; 80061; 80307; 81001; 82728; 82962; 83036; 83605; 83615; 83735; 84443; 84484; 85025; 85379; 85610; 85730; 86141; 87040; 87086; 93005; 93970; G0378; J0696; J1100; J1815

== ENCOUNTER 2021-09-07 10:54 | Emergency (ER) | payer OTHER, MEDICAID ==
[~2021-09-07] VITALS: Ht 162.6 cm; Wt 81.6 kg
[~2021-09-07 10:54] MED LIST changes: +ACET-6 PO; -ALBU18 INH; +APIX5TAB PO; -ASPI81CH43 PO; +BECL40AE11 IN; +DICL1GEL50 TD; +DOCU1CAP22 PO; -DOXY-286 PO; +DULO1CAP4 PO; -LEVO750T64 PO; +LOSA-39 PO; -LOSA-69 PO; +MORP1TAB12 PO; +OXYC325T14 PO; -PREG50CA PO; +SENN1TAB14 PO
[2021-09-07 12:16] LABS: Basophils # (auto) 0.1 10 ^3/uL (0-0.2); Basophils % (auto) 0.5 % (0.0-2.0); Eosinophils # (auto) 0.1 10 ^3/uL (0-0.8); Eosinophils % (auto) 0.9 % (0.0-7.0); Hemoglobin 12.9 g/dL (13.5-17.5); Lymphocytes # (auto) 1.8 10 ^3/uL (0.4-5.4); Lymphocytes % (auto) 15.2 % (10.0-50.0); Mean Corpuscular Hemoglobin 32.9 pg (28.0-32.0); Mean Corpuscular Hgb Conc. 34.8 g/dL (32.0-36.0); Mean Corpuscular Volume 94.5 fL (80.0-100.0); Monocytes # (auto) 0.7 10 ^3/uL (0-1.3); Monocytes % (auto) 5.6 % (0.0-12.0); Neutrophils # (auto) 9.1 10 ^3/uL (1.6-8.6); Neutrophils % (auto) 77.8 % (37.0-80.0); Nucleated Red Blood Cells % 0.1 %; Red Blood Cells 3.92 10^6/uL (4.5-5.90); White Blood Cell 11.7 10^3/uL (4.4-10.8)
[2021-09-07 12:33] LABS: Potassium 3.7 mmol/L (3.5-5.1)
[2021-09-07 12:39] LABS: Albumin 1.7 g/dL (3.4-5.0); BUN/Creatinine Ratio 16.7; Bilirubin, Total 0.2 mg/dL (0.2-1.0); Calcium 8.4 mg/dL (8.5-10.1); Total Protein 6.6 g/dL (6.4-8.2)
[2021-09-07] MEDS ORDERED: SODIUM CHLORIDE 0.9% 250 ML IV ONE (14:45)
[2021-09-07 15:42] VITALS: BP 118/78
== END 2021-09-07 16:29 | disposition home or self-care (01) ==
LOC: EDSEX 10:54 → EDBD 10:54 → ER 10:54
DX: R53.1 Weakness (principal); E86.0 Dehydration; E43 Unspecified severe protein-calorie malnutrition; Z68.30 Body mass index [BMI] 30.0-30.9, adult; I12.9 Hypertensive chronic kidney disease with stage 1 through stage 4 chronic kidney disease, or unspecified chronic kidney disease; E11.22 Type 2 diabetes mellitus with diabetic chronic kidney disease; N18.9 Chronic kidney disease, unspecified; J44.9 Chronic obstructive pulmonary disease, unspecified; E78.5 Hyperlipidemia, unspecified; Z79.899 Other long term (current) drug therapy; Z20.822 Contact with and (suspected) exposure to COVID-19
CPT/HCPCS: 36415; 71045; 80053; 82140; 85025; 87426; 93005; 99285; J7050

== ENCOUNTER 2021-09-09 12:19 | Emergency (ER) | payer OTHER, MEDICAID ==
[~2021-09-09] VITALS: Ht 160 cm; Wt 90.7 kg
[2021-09-09 13:48] LABS: Basophils # (auto) 0.1 10 ^3/uL (0-0.2); Basophils % (auto) 0.8 % (0.0-2.0); Eosinophils # (auto) 0.4 10 ^3/uL (0-0.8); Eosinophils % (auto) 4.3 % (0.0-7.0); Hemoglobin 12.4 g/dL (13.5-17.5); Lymphocytes # (auto) 2.6 10 ^3/uL (0.4-5.4); Lymphocytes % (auto) 29.1 % (10.0-50.0); Mean Corpuscular Hemoglobin 32.7 pg (28.0-32.0); Mean Corpuscular Hgb Conc. 34.4 g/dL (32.0-36.0); Mean Corpuscular Volume 95.2 fL (80.0-100.0); Monocytes # (auto) 0.6 10 ^3/uL (0-1.3); Monocytes % (auto) 7.3 % (0.0-12.0); Neutrophils # (auto) 5.2 10 ^3/uL (1.6-8.6); Neutrophils % (auto) 58.5 % (37.0-80.0); Nucleated Red Blood Cells % 0.1 %; Red Blood Cells 3.79 10^6/uL (4.5-5.90); Red Cell Distribution Width 13.3 % (11.8-14.3); White Blood Cell 8.8 10^3/uL (4.4-10.8)
[2021-09-09 14:07] LABS: Albumin 1.8 g/dL (3.4-5.0); Calcium 8.2 mg/dL (8.5-10.1); Magnesium 2.9 mg/dL (1.6-2.6); Potassium 3.7 mmol/L (3.5-5.1)
[2021-09-09 14:14] LABS: BUN/Creatinine Ratio 18.9; Bilirubin, Total 0.2 mg/dL (0.2-1.0); Total Protein 6.7 g/dL (6.4-8.2)
[2021-09-09 18:25] VITALS: BP 194/93
== END 2021-09-09 18:34 | disposition home or self-care (01) ==
LOC: ER 12:24
DX: R47.81 Slurred speech (principal); K74.60 Unspecified cirrhosis of liver; E43 Unspecified severe protein-calorie malnutrition; I10 Essential (primary) hypertension; R79.1 Abnormal coagulation profile; E11.9 Type 2 diabetes mellitus without complications; E78.5 Hyperlipidemia, unspecified; Z68.35 Body mass index [BMI] 35.0-35.9, adult
CPT/HCPCS: 36415; 70450; 71045; 71275; 80053; 82140; 83735; 84484; 85025; 85379; 93005

== ENCOUNTER 2022-06-01 21:45 | Inpatient (IN) | payer OTHER, MEDICAID ==
[~2022-06-01] VITALS: Ht 162.6 cm; Wt 90.7 kg
[2022-06-01] MEDS ORDERED: FUROSEMIDE 40 MG/4 ML VIAL IV ONE (22:45)
[2022-06-01] MEDS ORDERED: IPRATROPIUM BROM 0.5 MG/2.5ML INH SOL NEB ONE (23:00)
[2022-06-01] MEDS ORDERED: ALBUTEROL SULF 2.5 MG/0.5ML(0.5%) NEB SOLN NEB ONE (23:00)
[2022-06-01] MEDS ORDERED: methylPREDNISolone SOD SUCC 125 MG/2 ML VL IV ONE (23:00)
[2022-06-02 00:37] LABS: Basophils # (auto) 0.1 10 ^3/uL (0-0.2); Basophils % (auto) 0.6 % (0.0-2.0); Eosinophils # (auto) 0.8 10 ^3/uL (0-0.8); Eosinophils % (auto) 6.5 % (0.0-7.0); Hematocrit 30.5 % (41.0-53.0); Hemoglobin 10.3 g/dL (13.5-17.5); Lymphocytes # (auto) 3.5 10 ^3/uL (0.4-5.4); Lymphocytes % (auto) 30.2 % (10.0-50.0); Mean Corpuscular Hemoglobin 33.1 pg (28.0-32.0); Mean Corpuscular Hgb Conc. 33.7 g/dL (32.0-36.0); Mean Corpuscular Volume 98.4 fL (80.0-100.0); Monocytes % (auto) 8.6 % (0.0-12.0); Neutrophils # (auto) 6.3 10 ^3/uL (1.6-8.6); Neutrophils % (auto) 54.1 % (37.0-80.0); Nucleated Red Blood Cells % 0.1 %; Red Cell Distribution Width 14.5 % (11.8-14.3); White Blood Cell 11.6 10^3/uL (4.4-10.8)
[2022-06-02 00:54] LABS: Alanine Aminotransferase 21 U/L (16-61); Albumin 1.5 g/dL (3.4-5.0); Anion Gap 10 (5-15); Aspartate Aminotransferase 27 U/L (15-37); BUN/Creatinine Ratio 8.8; Blood Urea Nitrogen 11 mg/dL (7-18); Calcium 7.7 mg/dL (8.5-10.1); Carbon Dioxide 18 mmol/L (21-32); Chloride 116 mmol/L (98-107); GFR African American 73 mL/min; GFR Non-African American 61 mL/min; Glucose 105 mg/dL (74-106); Potassium 3.4 mmol/L (3.5-5.1); Sodium 144 mmol/L (136-145)
[2022-06-02 00:56] LABS: Alkaline Phosphatase 149 U/L (45-117); Bilirubin, Total < 0.1 mg/dL (0.2-1.0); Total Protein 6.7 g/dL (6.4-8.2)
[2022-06-02] MEDS ORDERED: ONDANSETRON HCL 4 MG/2 ML VIAL IV PRN (03:15)
[2022-06-02] MEDS ORDERED: NITROGLYCERIN 0.4 MG SL TAB SL PRN (03:15)
[2022-06-02] MEDS ORDERED: POTASSIUM CHL 20 Meq TABLET PO ONE (03:15)
[2022-06-02] MEDS ORDERED: MORPHINE SULFATE INJ 2 MG/ml SYRG IV PRN (03:15)
[2022-06-02] MEDS ORDERED: DEXTROSE (50%) 50ML SYRG IV PRN (03:15)
[2022-06-02 03:44] VITALS: BP 159/84
[2022-06-02 05:26] LABS: Urine Bacteria NONE SEEN /hpf (None Seen); Urine Blood TRACE /uL (Negative); Urine Hyaline Cast FEW /lpf (0 - 2); Urine Specific Gravity 1.006 (1.001-1.035); Urine WBC <1 /hpf (0 - 3)
[2022-06-02] MEDS: ACETAMINOPHEN 325 MG TAB PO PRN (06:44)
[2022-06-02] MEDS: hydrALAZINE HCL 25 MG TAB PO SCH ×3 (06:44→22:48)
[2022-06-02] MEDS: ACCU-CHEK COMFORT CURVE STRIP VI SCH ×4 (06:49→23:21)
[2022-06-02] MEDS: InsuLIN REG 1unit/0.01ml Soln (100units/ml) SC SCH ×4 (06:54→23:21)
[2022-06-02] MEDS ORDERED: ENOXAPARIN SOD 40 MG/0.4 ML SYRINGE SC SCH (10:00)
[2022-06-02] MEDS ORDERED: PANTOPRAZOLE 40 MG TAB PO SCH (10:00)
[2022-06-02] MEDS ORDERED: FUROSEMIDE 40 MG TAB PO SCH (10:00)
[2022-06-02] MEDS ORDERED: methylPREDNISolone SOD SUCC 125 MG/2 ML VL IV SCH (10:00)
[2022-06-02] MEDS: traMADol HCL 50 MG TAB PO PRN (10:19)
[2022-06-02] MEDS: METOPROLOL SUCCINATE XL 50 MG TAB PO SCH (10:26)
[2022-06-02] MEDS: NIFEdipine ER 30 MG TAB PO SCH (10:28)
[2022-06-02] MEDS: ALBUTEROL SULF 2.5 MG/0.5ML(0.5%) NEB SOLN NEB PRN (14:40)
[2022-06-02] MEDS: IPRATROPIUM BROM 0.5 MG/2.5ML INH SOL NEB PRN (14:40)
[2022-06-02] MEDS ORDERED: IOHEXOL 350 MG/ML 100ML IJ ONE (14:42)
[2022-06-02] MEDS ORDERED: FUROSEMIDE 20 MG/2 ML VIAL IV ONE (14:45)
[2022-06-02] MEDS ORDERED: ENOXAPARIN SOD 60 MG/0.6 ML SYRINGE SC ONE (15:00)
[2022-06-02 17:01] LABS: INR 0.97 (0.9-1.15); Partial Thromboplastin Time 27.5 sec (24.6-33.4)
[2022-06-02 17:04] LABS: BUN/Creatinine Ratio 12.2; Calcium 8.2 mg/dL (8.5-10.1); Potassium 3.7 mmol/L (3.5-5.1)
[2022-06-02 17:22] LABS: Free T4 (Free Thyroxine) 0.62 ng/dL (0.89-1.76)
[2022-06-02 17:23] LABS: Folate (Folic Acid) 4.59 ng/mL (5.38-24)
[2022-06-02] MEDS: ATORVASTATIN 20 MG TAB PO SCH (22:48)
[2022-06-02] MEDS: ENOXAPARIN SOD 100 MG/1 ML SYRINGE SC SCH (22:49)
[2022-06-02 23:22] VITALS: BP 156/104
[2022-06-03] MEDS: traMADol HCL 50 MG TAB PO PRN ×2 (01:54→17:51)
[2022-06-03 05:00] VITALS: BP 136/76
[2022-06-03] MEDS: hydrALAZINE HCL 25 MG TAB PO SCH ×3 (05:49→22:00)
[2022-06-03 05:58] LABS: Albumin 1.4 g/dL (3.4-5.0); Calcium 7.9 mg/dL (8.5-10.1); Potassium 3.6 mmol/L (3.5-5.1)
[2022-06-03 05:59] LABS: Basophils # (auto) 0.1 10 ^3/uL (0-0.2); Eosinophils # (auto) 0 10 ^3/uL (0-0.8); Monocytes # (auto) 0.9 10 ^3/uL (0-1.3)
[2022-06-03 06:02] LABS: Basophils % (auto) 0.5 % (0.0-2.0); Hematocrit 29.2 % (41.0-53.0); Hemoglobin 9.5 g/dL (13.5-17.5); Lymphocytes # (auto) 2.5 10 ^3/uL (0.4-5.4); Lymphocytes % (auto) 15.5 % (10.0-50.0); Mean Corpuscular Hemoglobin 32.3 pg (28.0-32.0); Mean Corpuscular Hgb Conc. 32.7 g/dL (32.0-36.0); Mean Corpuscular Volume 98.8 fL (80.0-100.0); Monocytes % (auto) 5.9 % (0.0-12.0); Neutrophils # (auto) 12.5 10 ^3/uL (1.6-8.6); Neutrophils % (auto) 78.1 % (37.0-80.0); Red Blood Cells 2.96 10^6/uL (4.5-5.90); Red Cell Distribution Width 14.3 % (11.8-14.3)
[2022-06-03] MEDS: InsuLIN REG 1unit/0.01ml Soln (100units/ml) SC SCH ×4 (06:05→22:56)
[2022-06-03] MEDS: ACCU-CHEK COMFORT CURVE STRIP VI SCH ×4 (06:05→22:46)
[2022-06-03 06:12] LABS: BUN/Creatinine Ratio 15.7; Bilirubin, Total 0.2 mg/dL (0.2-1.0); Total Protein 5.9 g/dL (6.4-8.2)
[2022-06-03] MEDS: ACETAMINOPHEN 325 MG TAB PO PRN (06:30)
[2022-06-03] MEDS ORDERED: METO-289 PO (06:55)
[2022-06-03] MEDS ORDERED: NIFE1TAB31 PO (06:56)
[2022-06-03] MEDS ORDERED: HYDR50TA15 PO ×2 (06:57→06:58)
[2022-06-03] MEDS ORDERED: FURO40TA4 PO (06:59)
[2022-06-03 07:52] VITALS: BP 118/58
[2022-06-03 08:42] VITALS: BP 115/48
[2022-06-03] MEDS: AZITHROMYCIN 250 MG TAB PO SCH (09:51)
[2022-06-03] MEDS: METOPROLOL SUCCINATE XL 50 MG TAB PO SCH (09:51)
[2022-06-03] MEDS: ENOXAPARIN SOD 100 MG/1 ML SYRINGE SC SCH ×2 (09:52→22:45)
[2022-06-03] MEDS: NIFEdipine ER 30 MG TAB PO SCH (09:52)
[2022-06-03] MEDS ORDERED: FUROSEMIDE 40 MG/4 ML VIAL IV SCH (10:00)
[2022-06-03] MEDS ORDERED: FUROSEMIDE 20 MG/2 ML VIAL IV SCH (10:00)
[2022-06-03] MEDS ORDERED: predniSONE 20 MG TAB PO SCH (10:00)
[2022-06-03] MEDS ORDERED: POTASSIUM EFFERVESENT TAB 25 MEQ PO ONE (11:00)
[2022-06-03] MEDS ORDERED: diphenhdrAMINE HCL 25 MG CAP PO PRN (11:15)
[2022-06-03] MEDS: SODIUM BICARBONATE 50ML VIAL 50 ML in SOD CHL 0.45% 1,000 ML IV SCH ×2 (11:37→23:02)
[2022-06-03 12:05] LABS: Creatinine, Urine 18.9 mg/dL (30.0-125.0)
[2022-06-03 12:06] LABS: Protein, Urine 556.5 mg/dL (0.0-11.9)
[2022-06-03 13:00] VITALS: BP 139/80
[2022-06-03 17:00] VITALS: BP 109/54
[2022-06-03] MEDS: FUROSEMIDE 40 MG/4 ML VIAL IV SCH ×2 (17:50→22:45)
[2022-06-03 22:00] VITALS: BP 107/53
[2022-06-03] MEDS: predniSONE 20 MG TAB PO SCH (22:44)
[2022-06-03] MEDS: ATORVASTATIN 20 MG TAB PO SCH (22:45)
[2022-06-04] MEDS: IPRATROPIUM BROM 0.5 MG/2.5ML INH SOL NEB PRN (02:58)
[2022-06-04] MEDS: ALBUTEROL SULF 2.5 MG/0.5ML(0.5%) NEB SOLN NEB PRN (02:58)
[2022-06-04 05:00] VITALS: BP 112/6
[2022-06-04] MEDS: hydrALAZINE HCL 25 MG TAB PO SCH ×2 (05:51→14:30)
[2022-06-04] MEDS: InsuLIN REG 1unit/0.01ml Soln (100units/ml) SC SCH ×3 (07:08→17:43)
[2022-06-04] MEDS: ACCU-CHEK COMFORT CURVE STRIP VI SCH ×3 (07:09→17:43)
[2022-06-04] MEDS: SODIUM BICARBONATE 50ML VIAL 50 ML in SOD CHL 0.45% 1,000 ML IV SCH (08:07)
[2022-06-04] MEDS: traMADol HCL 50 MG TAB PO PRN ×2 (08:17→14:29)
[2022-06-04 09:30] VITALS: BP 136/72
[2022-06-04] MEDS ORDERED: PANTOPRAZOLE 40 MG TAB PO SCH (10:00)
[2022-06-04] MEDS: AZITHROMYCIN 250 MG TAB PO SCH (11:10)
[2022-06-04] MEDS: predniSONE 20 MG TAB PO SCH (11:10)
[2022-06-04] MEDS: FUROSEMIDE 40 MG/4 ML VIAL IV SCH (11:10)
[2022-06-04] MEDS: NIFEdipine ER 30 MG TAB PO SCH (11:11)
[2022-06-04] MEDS: METOPROLOL SUCCINATE XL 50 MG TAB PO SCH (11:12)
[2022-06-04] MEDS: ENOXAPARIN SOD 100 MG/1 ML SYRINGE SC SCH (11:12)
[2022-06-04 12:30] VITALS: BP 116/71
[2022-06-04 15:30] VITALS: BP 140/80
[2022-06-04] MEDS ORDERED: PRED20TA2 PO (16:21)
[2022-06-04 17:58] VITALS: BP 153/70
== END 2022-06-04 18:53 | disposition hospice, home (50) | DRG 191 ==
LOC: EDBD 21:45 → ER 21:49 → TELE 06-02 03:30 → TELE-CENTR 06-02 21:15
PROVIDERS: ADMIT Nurse Practitioner; ATTEND Student in an Organized Health Care Education/Training Program
DX: J44.1 Chronic obstructive pulmonary disease with (acute) exacerbation (principal); E87.20 Acidosis, unspecified; J44.0 Chronic obstructive pulmonary disease with (acute) lower respiratory infection; N18.9 Chronic kidney disease, unspecified; Z68.34 Body mass index [BMI] 34.0-34.9, adult; I12.9 Hypertensive chronic kidney disease with stage 1 through stage 4 chronic kidney disease, or unspecified chronic kidney disease; E78.5 Hyperlipidemia, unspecified; F41.9 Anxiety disorder, unspecified; M19.90 Unspecified osteoarthritis, unspecified site; G47.33 Obstructive sleep apnea (adult) (pediatric); E11.22 Type 2 diabetes mellitus with diabetic chronic kidney disease; E55.9 Vitamin D deficiency, unspecified; E66.9 Obesity, unspecified; Z20.822 Contact with and (suspected) exposure to COVID-19; E87.8 Other disorders of electrolyte and fluid balance, not elsewhere classified; J20.9 Acute bronchitis, unspecified; Z79.01 Long term (current) use of anticoagulants; Z79.84 Long term (current) use of oral hypoglycemic drugs; Z83.3 Family history of diabetes mellitus; Z86.711 Personal history of pulmonary embolism; Z86.718 Personal history of other venous thrombosis and embolism; Z99.81 Dependence on supplemental oxygen; Z86.19 Personal history of other infectious and parasitic diseases
CPT/HCPCS: 36415; 71045; 71275; 76775; 80048; 80053; 81001; 82140; 82306; 82570; 82746; 82962; 83735; 83880; 84100; 84156; 84300; 84439; 84443; 84484; 85025; 85379; 85610; 85730; 87426; 93005; 93306; 93926; 93970; 94640; 96374; 96375; G0378; J1815

== ENCOUNTER 2022-06-25 13:09 | Inpatient (IN) | payer OTHER, MEDICAID ==
[~2022-06-25] VITALS: Ht 152.4 cm; Wt 91.9 kg
[~2022-06-25 13:09] MED LIST changes: -ACET-6 PO; -ALBUAER3 IN; -APIX5TAB PO; -BECL40AE11 IN; -DICL1GEL50 TD; -DOCU1CAP22 PO; -DULO1CAP4 PO; -FLUT110A IN; -LOSA-39 PO; -METF-370 PO; -MORP1TAB12 PO; -OXYC325T14 PO; +PRED20TA2 PO; -SENN1TAB14 PO
[2022-06-25] MEDS ORDERED: FUROSEMIDE 20 MG TAB PO ONE (13:30)
[2022-06-25] MEDS ORDERED: IPRATROPIUM BROM 0.5 MG/2.5ML INH SOL NEB ONE (13:30)
[2022-06-25] MEDS ORDERED: DexAMETHasone SOD PHOS 10MG/1ML VIAL INJ IV ONE (13:30)
[2022-06-25] MEDS ORDERED: MAGNESIUM SULFATE 1GM/100ML 100 ML IV ONE (13:30)
[2022-06-25] MEDS ORDERED: ALBUTEROL SULF 2.5 MG/0.5ML(0.5%) NEB SOLN NEB ONE (13:30)
[2022-06-25 14:38] LABS: Basophils # (auto) 0.2 10 ^3/uL (0-0.2); Basophils % (auto) 1.6 % (0.0-2.0); Eosinophils # (auto) 0 10 ^3/uL (0-0.8); Hematocrit 27.9 % (41.0-53.0); Lymphocytes # (auto) 0.7 10 ^3/uL (0.4-5.4); Lymphocytes % (auto) 5.8 % (10.0-50.0); Mean Corpuscular Hemoglobin 32.1 pg (28.0-32.0); Mean Corpuscular Hgb Conc. 32.3 g/dL (32.0-36.0); Mean Corpuscular Volume 99.2 fL (80.0-100.0); Monocytes # (auto) 0.3 10 ^3/uL (0-1.3); Monocytes % (auto) 2.6 % (0.0-12.0); Neutrophils # (auto) 10.9 10 ^3/uL (1.6-8.6); Nucleated Red Blood Cells % 0.1 %; Red Blood Cells 2.81 10^6/uL (4.5-5.90); Red Cell Distribution Width 14.6 % (11.8-14.3); White Blood Cell 12.1 10^3/uL (4.4-10.8)
[2022-06-25 14:44] LABS: Alanine Aminotransferase 51 U/L (16-61); Albumin 1.5 g/dL (3.4-5.0); Alkaline Phosphatase 141 U/L (45-117); Anion Gap 5 (5-15); Aspartate Aminotransferase 37 U/L (15-37); Bilirubin, Total < 0.1 mg/dL (0.2-1.0); Blood Urea Nitrogen 30 mg/dL (7-18); Calcium 7.4 mg/dL (8.5-10.1); Carbon Dioxide 26 mmol/L (21-32); Chloride 111 mmol/L (98-107); GFR African American 77 mL/min; GFR Non-African American 63 mL/min; Glucose 197 mg/dL (74-106); Magnesium 2.1 mg/dL (1.6-2.6); Potassium 4.2 mmol/L (3.5-5.1); Sodium 142 mmol/L (136-145)
[2022-06-25] MEDS ORDERED: cefTRIAXone 1GM/50ML D5W 50 ML IV ONE (15:00)
[2022-06-25] MEDS ORDERED: AZITHROMYCIN 500MG/ 250ML 250 ML IV ONE (15:30)
[2022-06-25] MEDS ORDERED: DEXTROSE (50%) 50ML SYRG IV PRN (16:30)
[2022-06-25] MEDS ORDERED: NITROGLYCERIN 0.4 MG SL TAB SL PRN (16:30)
[2022-06-25] MEDS ORDERED: ONDANSETRON HCL 4 MG/2 ML VIAL IV PRN (16:30)
[2022-06-25] MEDS ORDERED: DOCUSATE SOD 100 MG CAP PO PRN (16:30)
[2022-06-25] MEDS ORDERED: MORPHINE SULFATE INJ 2 MG/ml SYRG IV PRN (16:30)
[2022-06-25 17:15] VITALS: BP 167/81
[2022-06-25] MEDS: ACCU-CHEK COMFORT CURVE STRIP VI SCH ×2 (17:19→23:04)
[2022-06-25] MEDS: InsuLIN REG 1unit/0.01ml Soln (100units/ml) SC SCH ×2 (17:26→23:05)
[2022-06-25] MEDS: IPRATROPIUM BROM 0.5 MG/2.5ML INH SOL NEB SCH (18:35)
[2022-06-25] MEDS: ALBUTEROL SULF 2.5 MG/0.5ML(0.5%) NEB SOLN NEB SCH (18:35)
[2022-06-25 18:36] LABS: Urine Bacteria NONE SEEN /hpf (None Seen); Urine Blood Negative /uL (Negative); Urine Specific Gravity 1.019 (1.001-1.035); Urine WBC 1 /hpf (0 - 3)
[2022-06-25] MEDS ORDERED: NIFE1TAB31 PO (21:28)
[2022-06-25] MEDS ORDERED: hydrALAZINE HCL 20 MG/ML VL IV PRN (21:30)
[2022-06-25 22:52] VITALS: BP 118/78
[2022-06-26] VITALS (7 sets, daily range): BP systolic 118–188; BP diastolic 71–90
[2022-06-26] MEDS: ALBUTEROL SULF 2.5 MG/0.5ML(0.5%) NEB SOLN NEB SCH ×6 (00:10→22:08)
[2022-06-26] MEDS: IPRATROPIUM BROM 0.5 MG/2.5ML INH SOL NEB SCH ×6 (00:10→22:08)
[2022-06-26 04:21] LABS: Basophils # (auto) 0 10 ^3/uL (0-0.2); Eosinophils # (auto) 0 10 ^3/uL (0-0.8); Hemoglobin 8.2 g/dL (13.5-17.5); Lymphocytes # (auto) 0.9 10 ^3/uL (0.4-5.4); White Blood Cell 11.1 10^3/uL (4.4-10.8)
[2022-06-26 04:23] LABS: Basophils % (auto) 0.1 % (0.0-2.0); Hematocrit 23.7 % (41.0-53.0); Lymphocytes % (auto) 8.4 % (10.0-50.0); Mean Corpuscular Hemoglobin 33.3 pg (28.0-32.0); Mean Corpuscular Hgb Conc. 34.6 g/dL (32.0-36.0); Mean Corpuscular Volume 96.4 fL (80.0-100.0); Monocytes # (auto) 0.2 10 ^3/uL (0-1.3); Monocytes % (auto) 2.1 % (0.0-12.0); Neutrophils # (auto) 9.9 10 ^3/uL (1.6-8.6); Neutrophils % (auto) 89.4 % (37.0-80.0); Red Blood Cells 2.46 10^6/uL (4.5-5.90); Red Cell Distribution Width 14.1 % (11.8-14.3)
[2022-06-26 04:33] LABS: Calcium 7.5 mg/dL (8.5-10.1)
[2022-06-26] MEDS: ACCU-CHEK COMFORT CURVE STRIP VI SCH ×4 (06:31→22:30)
[2022-06-26] MEDS: InsuLIN REG 1unit/0.01ml Soln (100units/ml) SC SCH ×4 (06:33→22:41)
[2022-06-26] MEDS ORDERED: cefTRIAXone 1GM/50ML D5W 50 ML IV SCH (09:00)
[2022-06-26] MEDS: FUROSEMIDE 20 MG/2 ML VIAL IV SCH (09:16)
[2022-06-26] MEDS: ENOXAPARIN SOD 40 MG/0.4 ML SYRINGE SC SCH (09:17)
[2022-06-26] MEDS: NIFEdipine ER 30 MG TAB PO SCH (09:17)
[2022-06-26] MEDS: AZITHROMYCIN 500MG/ 250ML 250 ML IV SCH (10:05)
[2022-06-26] MEDS ORDERED: SODIUM CHLORIDE 0.9% 1,000 ML IV SCH (11:30)
[2022-06-26] MEDS ORDERED: methylPREDNISolone SOD SUCC 40 MG/ML VL IV SCH (11:35)
[2022-06-26] MEDS: methylPREDNISolone SOD SUCC 40 MG/ML VL IV SCH ×2 (11:45→22:39)
[2022-06-26] MEDS ORDERED: IPRATROPIUM BROM 0.5 MG/2.5ML INH SOL NEB SCH (12:00)
[2022-06-26] MEDS: guaiFENesin-DM 100/10mg/5ml SYR PO PRN (12:48)
[2022-06-26] MEDS: PIPERACILLIN-TAZOB 3.375GM 100 ML IV SCH ×2 (12:48→17:28)
[2022-06-26] MEDS ORDERED: methylPREDNISolone SOD SUCC 125 MG/2 ML VL IV ONE (13:30)
[2022-06-26] MEDS ORDERED: MAGNESIUM SULFATE 1GM/100ML 100 ML IV ONE (13:30)
[2022-06-26] MEDS: ACETYLCYSTEINE 10 %(100MG/ML) SOL 4ML NEB SCH ×2 (15:40→19:14)
[2022-06-26] MEDS: BUDESONIDE (INHALATION) 0.5 MG/2 ML NEB NEB SCH (22:08)
[2022-06-26] MEDS: OSELTAMIVIR 75 MG CAP PO SCH (22:38)
[2022-06-27] MEDS: PIPERACILLIN-TAZOB 3.375GM 100 ML IV SCH ×4 (00:16→17:59)
[2022-06-27] MEDS: guaiFENesin-DM 100/10mg/5ml SYR PO PRN (02:49)
[2022-06-27 05:00] VITALS: BP 142/64
[2022-06-27] MEDS: IPRATROPIUM BROM 0.5 MG/2.5ML INH SOL NEB SCH ×5 (06:08→21:29)
[2022-06-27] MEDS: ALBUTEROL SULF 2.5 MG/0.5ML(0.5%) NEB SOLN NEB SCH ×5 (06:08→21:29)
[2022-06-27] MEDS: ACETYLCYSTEINE 10 %(100MG/ML) SOL 4ML NEB SCH ×2 (06:09→15:28)
[2022-06-27 06:27] LABS: Basophils # (auto) 0 10 ^3/uL (0-0.2); Basophils % (auto) 0.1 % (0.0-2.0); Eosinophils # (auto) 0 10 ^3/uL (0-0.8); Hematocrit 27.3 % (41.0-53.0); Hemoglobin 9.5 g/dL (13.5-17.5); Lymphocytes # (auto) 0.7 10 ^3/uL (0.4-5.4); Lymphocytes % (auto) 6.6 % (10.0-50.0); Mean Corpuscular Hgb Conc. 34.9 g/dL (32.0-36.0); Mean Corpuscular Volume 97.3 fL (80.0-100.0); Monocytes # (auto) 0.2 10 ^3/uL (0-1.3); Monocytes % (auto) 1.5 % (0.0-12.0); Neutrophils # (auto) 9.9 10 ^3/uL (1.6-8.6); Neutrophils % (auto) 91.8 % (37.0-80.0); Red Cell Distribution Width 14.4 % (11.8-14.3); White Blood Cell 10.8 10^3/uL (4.4-10.8)
[2022-06-27 06:44] LABS: BUN/Creatinine Ratio 28.9; Calcium 7.5 mg/dL (8.5-10.1); Potassium 4.3 mmol/L (3.5-5.1)
[2022-06-27] MEDS: InsuLIN REG 1unit/0.01ml Soln (100units/ml) SC SCH ×4 (07:00→22:53)
[2022-06-27] MEDS: ACCU-CHEK COMFORT CURVE STRIP VI SCH ×4 (07:56→22:52)
[2022-06-27 09:26] VITALS: BP 159/80
[2022-06-27] MEDS: BUDESONIDE (INHALATION) 0.5 MG/2 ML NEB NEB SCH ×2 (10:23→21:32)
[2022-06-27] MEDS: ENOXAPARIN SOD 40 MG/0.4 ML SYRINGE SC SCH (11:13)
[2022-06-27] MEDS: methylPREDNISolone SOD SUCC 40 MG/ML VL IV SCH (11:15)
[2022-06-27] MEDS: FUROSEMIDE 20 MG/2 ML VIAL IV SCH (11:18)
[2022-06-27] MEDS: NIFEdipine ER 30 MG TAB PO SCH (11:19)
[2022-06-27] MEDS: OSELTAMIVIR 75 MG CAP PO SCH ×2 (11:20→22:51)
[2022-06-27] MEDS: HYDROcodone-ACET 5/325MG TAB PO PRN ×2 (12:01→18:06)
[2022-06-27 13:02] VITALS: BP 157/95
[2022-06-27] MEDS: AZITHROMYCIN 500MG/ 250ML 250 ML IV SCH (13:35)
[2022-06-27 17:10] VITALS: BP 117/72
[2022-06-27 21:28] VITALS: BP 142/71
[2022-06-28] VITALS (7 sets, daily range): BP systolic 139–161; BP diastolic 74–87
[2022-06-28] MEDS: methylPREDNISolone SOD SUCC 40 MG/ML VL IV SCH ×2 (00:01→10:28)
[2022-06-28] MEDS: PIPERACILLIN-TAZOB 3.375GM 100 ML IV SCH ×3 (00:21→13:10)
[2022-06-28] MEDS ORDERED: MELATONIN 5 MG TAB PO PRN (06:30)
[2022-06-28] MEDS: ACCU-CHEK COMFORT CURVE STRIP VI SCH ×2 (06:40→11:31)
[2022-06-28] MEDS: InsuLIN REG 1unit/0.01ml Soln (100units/ml) SC SCH ×2 (06:41→11:55)
[2022-06-28 06:47] LABS: Basophils # (auto) 0 10 ^3/uL (0-0.2); Basophils % (auto) 0.3 % (0.0-2.0); Eosinophils # (auto) 0 10 ^3/uL (0-0.8); Hematocrit 26.6 % (41.0-53.0); Hemoglobin 9.2 g/dL (13.5-17.5); Lymphocytes # (auto) 0.7 10 ^3/uL (0.4-5.4); Lymphocytes % (auto) 6.8 % (10.0-50.0); Mean Corpuscular Hemoglobin 33.9 pg (28.0-32.0); Mean Corpuscular Hgb Conc. 34.5 g/dL (32.0-36.0); Mean Corpuscular Volume 98.3 fL (80.0-100.0); Monocytes # (auto) 0.3 10 ^3/uL (0-1.3); Monocytes % (auto) 2.6 % (0.0-12.0); Neutrophils # (auto) 9.5 10 ^3/uL (1.6-8.6); Neutrophils % (auto) 90.3 % (37.0-80.0); Nucleated Red Blood Cells % 0.1 %; Red Blood Cells 2.71 10^6/uL (4.5-5.90); Red Cell Distribution Width 14.2 % (11.8-14.3); White Blood Cell 10.5 10^3/uL (4.4-10.8)
[2022-06-28 07:13] LABS: Calcium 7.4 mg/dL (8.5-10.1); Potassium 3.8 mmol/L (3.5-5.1)
[2022-06-28] MEDS: IPRATROPIUM BROM 0.5 MG/2.5ML INH SOL NEB SCH ×3 (07:53→14:56)
[2022-06-28] MEDS: ALBUTEROL SULF 2.5 MG/0.5ML(0.5%) NEB SOLN NEB SCH ×3 (07:53→14:56)
[2022-06-28] MEDS: HYDROcodone-ACET 5/325MG TAB PO PRN (10:24)
[2022-06-28] MEDS: OSELTAMIVIR 75 MG CAP PO SCH (10:25)
[2022-06-28] MEDS: NIFEdipine ER 30 MG TAB PO SCH (10:26)
[2022-06-28] MEDS: ENOXAPARIN SOD 40 MG/0.4 ML SYRINGE SC SCH (10:27)
[2022-06-28] MEDS: FUROSEMIDE 20 MG/2 ML VIAL IV SCH (10:27)
[2022-06-28] MEDS: BUDESONIDE (INHALATION) 0.5 MG/2 ML NEB NEB SCH (10:29)
[2022-06-28] MEDS: AZITHROMYCIN 500MG/ 250ML 250 ML IV SCH (11:00)
[2022-06-28] MEDS ORDERED: PRED20TA2 PO (12:15)
[2022-06-28] MEDS ORDERED: TAMIFLU PO (12:15)
== END 2022-06-28 17:15 | disposition home or self-care (01) | DRG 189 ==
LOC: EDBD 13:09 → EDUNIT# 13:09 → ER 13:11 → TELE-CENTR 16:35
PROVIDERS: ADMIT Nurse Practitioner Family; ATTEND Nurse Practitioner Acute Care
DX: J96.21 Acute and chronic respiratory failure with hypoxia (principal); J44.1 Chronic obstructive pulmonary disease with (acute) exacerbation; E46 Unspecified protein-calorie malnutrition; I13.0 Hypertensive heart and chronic kidney disease with heart failure and stage 1 through stage 4 chronic kidney disease, or unspecified chronic kidney disease; D64.9 Anemia, unspecified; E66.9 Obesity, unspecified; E78.5 Hyperlipidemia, unspecified; F41.9 Anxiety disorder, unspecified; J10.1 Influenza due to other identified influenza virus with other respiratory manifestations; Z20.822 Contact with and (suspected) exposure to COVID-19; M19.90 Unspecified osteoarthritis, unspecified site; K74.60 Unspecified cirrhosis of liver; E11.22 Type 2 diabetes mellitus with diabetic chronic kidney disease; I50.9 Heart failure, unspecified; N18.9 Chronic kidney disease, unspecified; Z68.39 Body mass index [BMI] 39.0-39.9, adult; Z79.51 Long term (current) use of inhaled steroids; Z83.3 Family history of diabetes mellitus; Z79.84 Long term (current) use of oral hypoglycemic drugs
CPT/HCPCS: 36415; 71045; 80048; 80053; 81001; 82962; 83036; 83735; 83880; 84484; 85025; 87081; 87426; 87804; 93005; 94640; 96365; 96366; 96367; 96368; 96375; G0378; J0696; J1100; J1815; J2405; J2543

== ENCOUNTER 2023-03-07 14:48 | Inpatient (IN) | payer OTHER, MEDICAID ==
[~2023-03-07] VITALS: Ht 162.6 cm; Wt 86.6 kg
[~2023-03-07 14:48] MED LIST changes: +ALBUAER3 IN; +AZIT500T66 PO; +LEVO500T31 PO; +METR500T PO; +NIFE1TAB31 PO; +TAMIFLU PO
[2023-03-07 15:47] LABS: Basophils # (auto) 0.1 10 ^3/uL (0-0.2); Eosinophils # (auto) 0.5 10 ^3/uL (0-0.8); Eosinophils % (auto) 5.6 % (0.0-7.0); Hemoglobin 12.3 g/dL (13.5-17.5); Lymphocytes # (auto) 3.3 10 ^3/uL (0.4-5.4); Lymphocytes % (auto) 38.2 % (10.0-50.0); Neutrophils # (auto) 4.1 10 ^3/uL (1.6-8.6); White Blood Cell 8.6 10^3/uL (4.4-10.8)
[2023-03-07 15:49] LABS: Basophils % (auto) 1.1 % (0.0-2.0); Hematocrit 36.8 % (41.0-53.0); Mean Corpuscular Hgb Conc. 33.5 g/dL (32.0-36.0); Mean Corpuscular Volume 92.4 fL (80.0-100.0); Monocytes # (auto) 0.6 10 ^3/uL (0-1.3); Monocytes % (auto) 7.4 % (0.0-12.0); Neutrophils % (auto) 47.7 % (37.0-80.0); Nucleated Red Blood Cells % 0.2 %; Red Blood Cells 3.98 10^6/uL (4.5-5.90); Red Cell Distribution Width 14.5 % (11.8-14.3)
[2023-03-07] MEDS ORDERED: NIFE1TAB31 PO (15:51)
[2023-03-07] MEDS ORDERED: TRAZ-228 PO ×2 (15:51)
[2023-03-07] MEDS ORDERED: ATOR20TA50 PO (15:51)
[2023-03-07] MEDS ORDERED: PROP60CA34 PO (15:51)
[2023-03-07] MEDS ORDERED: FURO1TAB31 PO (15:51)
[2023-03-07] MEDS ORDERED: ALBUAER3 IN (15:51)
[2023-03-07 16:07] LABS: Albumin 1.3 g/dL (3.4-5.0); Calcium 7.2 mg/dL (8.5-10.1)
[2023-03-07 16:11] LABS: BUN/Creatinine Ratio 10.2 (10.0-20.0); Bilirubin, Total 0.2 mg/dL (0.2-1.0); Total Protein 4.8 g/dL (6.4-8.2)
[2023-03-07 16:25] VITALS: PULSE 62; RESP 20; O2SAT 94
[2023-03-07 16:31] LABS: Potassium 2.8 mmol/L (3.5-5.1)
[2023-03-07] MEDS ORDERED: CALCIUM GLUC 1,000mg/50ml-NS 50 ML IV ONE (17:00)
[2023-03-07] MEDS ORDERED: POTASSIUM EFFERVESENT TAB 25 MEQ PO ONE (17:00)
[2023-03-07 18:33] LABS: Urine Bacteria NONE SEEN /hpf (None Seen); Urine Blood TRACE /uL (Negative); Urine Clarity Clear (Clear); Urine Color Colorless (Yellow); Urine Hyaline Cast MOD /lpf (0 - 2); Urine Protein, UAD 3+ (Negative); Urine Specific Gravity 1.011 (1.001-1.035); Urine Urobilinogen Normal (Negative); Urine WBC 1 /hpf (0 - 3); Urine pH 6.5 (5.0-8.0)
[2023-03-07] MEDS ORDERED: DEXTROSE (50%) 50ML SYRG IV PRN (18:45)
[2023-03-07] MEDS ORDERED: NITROGLYCERIN 0.4 MG SL TAB SL PRN (18:45)
[2023-03-07] MEDS ORDERED: MORPHINE SULFATE INJ 2 MG/ml SYRG IV PRN (18:45)
[2023-03-07] MEDS ORDERED: DOCUSATE SOD 100 MG CAP PO PRN (18:45)
[2023-03-07] MEDS ORDERED: ONDANSETRON HCL 4 MG/2 ML VIAL IV PRN (18:45)
[2023-03-07] MEDS ORDERED: ACETAMINOPHEN 325 MG TAB PO PRN (18:45)
[2023-03-07 19:20] VITALS: PULSE 62; RESP 14; O2SAT 95
[2023-03-07] MEDS ORDERED: IPRATROPIUM BROM 0.5 MG/2.5ML INH SOL NEB PRN (19:45)
[2023-03-07] MEDS ORDERED: ALBUTEROL SULF 2.5 MG/0.5ML(0.5%) NEB SOLN NEB PRN (19:45)
[2023-03-07 19:54] VITALS: O2SAT 94
[2023-03-07 20:00] VITALS: BP 112/76; PULSE 62; RESP 18; TEMP 98.4; O2SAT 97
[2023-03-07 20:16] LABS: Magnesium 1.7 mg/dL (1.6-2.6); Potassium 3.4 mmol/L (3.5-5.1)
[2023-03-07] MEDS ORDERED: LORazepam 0.5 MG TAB PO PRN (21:15)
[2023-03-07] MEDS: SODIUM CHLOR 0.9% PF (SALINE LOCK) 10ML VIAL/SYR IV SCH (21:45)
[2023-03-07] MEDS: NIFEdipine ER 30 MG TAB PO SCH (21:45)
[2023-03-07] MEDS: HYDROcodone-ACET 5/325MG TAB PO PRN (21:46)
[2023-03-07] MEDS: FUROSEMIDE 40 MG TAB PO SCH (21:46)
[2023-03-07] MEDS: InsuLIN REG 1unit/0.01ml Soln (100units/ml) SC SCH (21:47)
[2023-03-07] MEDS: PROPRANOLOL HCL 20 MG TAB PO SCH (21:47)
[2023-03-07] MEDS: ACCU-CHEK COMFORT CURVE STRIP VI SCH (21:47)
[2023-03-08] VITALS (7 sets, daily range): BP systolic 132; BP diastolic 72–73; PULSE 62–68; RESP 16–18; TEMP 97.2–98.4; O2SAT 95–97
[2023-03-08 05:34] LABS: Basophils # (auto) 0.1 10 ^3/uL (0-0.2); Basophils % (auto) 0.7 % (0.0-2.0); Eosinophils # (auto) 0.5 10 ^3/uL (0-0.8); Eosinophils % (auto) 6.4 % (0.0-7.0); Hematocrit 36.6 % (41.0-53.0); Hemoglobin 12.4 g/dL (13.5-17.5); Lymphocytes # (auto) 2.9 10 ^3/uL (0.4-5.4); Lymphocytes % (auto) 37.2 % (10.0-50.0); Mean Corpuscular Hemoglobin 31.7 pg (28.0-32.0); Mean Corpuscular Volume 93.2 fL (80.0-100.0); Monocytes # (auto) 0.5 10 ^3/uL (0-1.3); Neutrophils # (auto) 3.9 10 ^3/uL (1.6-8.6); Neutrophils % (auto) 49.7 % (37.0-80.0); Nucleated Red Blood Cells % 0.1 %; Red Blood Cells 3.93 10^6/uL (4.5-5.90); Red Cell Distribution Width 14.7 % (11.8-14.3); White Blood Cell 7.8 10^3/uL (4.4-10.8)
[2023-03-08 05:48] LABS: Albumin 1.3 g/dL (3.4-5.0); Calcium 7.5 mg/dL (8.5-10.1)
[2023-03-08 05:53] LABS: BUN/Creatinine Ratio 11.1 (10.0-20.0); Bilirubin, Total 0.2 mg/dL (0.2-1.0); Total Protein 5.6 g/dL (6.4-8.2)
[2023-03-08] MEDS: SODIUM CHLOR 0.9% PF (SALINE LOCK) 10ML VIAL/SYR IV SCH ×3 (05:55→22:00)
[2023-03-08] MEDS: PROPRANOLOL HCL 20 MG TAB PO SCH ×3 (05:56→22:00)
[2023-03-08] MEDS: HYDROcodone-ACET 5/325MG TAB PO PRN ×3 (06:00→20:31)
[2023-03-08 06:26] LABS: Potassium 2.7 mmol/L (3.5-5.1)
[2023-03-08] MEDS: ACCU-CHEK COMFORT CURVE STRIP VI SCH ×4 (06:31→22:00)
[2023-03-08] MEDS: InsuLIN REG 1unit/0.01ml Soln (100units/ml) SC SCH ×4 (06:32→22:00)
[2023-03-08] MEDS ORDERED: POTASSIUM CHL 20 Meq TABLET PO ONE ×2 (07:00→14:00)
[2023-03-08] MEDS: ATORVASTATIN 20 MG TAB PO SCH (09:23)
[2023-03-08] MEDS: NIFEdipine ER 30 MG TAB PO SCH ×2 (09:27→22:00)
[2023-03-08] MEDS: FUROSEMIDE 40 MG TAB PO SCH ×2 (10:14→22:00)
[2023-03-08 14:01] LABS: Cholesterol 203 mg/dL (< 200)
[2023-03-08 14:07] LABS: Triglycerides 157 mg/dL (< 150)
[2023-03-08 14:08] LABS: HDL Cholesterol 43 mg/dL (40-59); LDL Cholesterol 129 mg/dL (< 100)
[2023-03-08 14:58] LABS: Protein, Urine 1356.4 mg/dL (0.0-11.9)
[2023-03-08] MEDS ORDERED: MAGNESIUM SULFATE 1GM/100ML 100 ML IV ONE (17:15)
[2023-03-09] VITALS (8 sets, daily range): BP systolic 102–123; BP diastolic 52–71; PULSE 53–72; RESP 17–20; TEMP 97.6–98; O2SAT 95–98
[2023-03-09] MEDS: HYDROcodone-ACET 5/325MG TAB PO PRN ×4 (00:59→21:46)
[2023-03-09] MEDS: PROPRANOLOL HCL 20 MG TAB PO SCH ×3 (06:00→21:45)
[2023-03-09 06:12] LABS: Potassium 3.5 mmol/L (3.5-5.1)
[2023-03-09 06:20] LABS: BUN/Creatinine Ratio 14.1 (10.0-20.0); Calcium 7.2 mg/dL (8.5-10.1)
[2023-03-09] MEDS: SODIUM CHLOR 0.9% PF (SALINE LOCK) 10ML VIAL/SYR IV SCH ×3 (06:26→21:48)
[2023-03-09] MEDS: InsuLIN REG 1unit/0.01ml Soln (100units/ml) SC SCH ×4 (06:44→21:48)
[2023-03-09] MEDS: ACCU-CHEK COMFORT CURVE STRIP VI SCH ×4 (06:44→21:48)
[2023-03-09 07:12] LABS: Complement C3 137 mg/dL (82-167)
[2023-03-09] MEDS: ATORVASTATIN 20 MG TAB PO SCH ×2 (08:33→10:45)
[2023-03-09] MEDS: FUROSEMIDE 40 MG TAB PO SCH ×2 (08:34→21:45)
[2023-03-09] MEDS ORDERED: LEVOTHYROXINE SODIUM 112 MCG TAB PO ONE (09:45)
[2023-03-09] MEDS ORDERED: LEVOTHYROXINE SODIUM 25 MCG TAB PO ONE (09:45)
[2023-03-09] MEDS: LEVOTHYROXINE SODIUM 25 MCG TAB PO SCH (10:45)
[2023-03-09] MEDS: LEVOTHYROXINE SODIUM 112 MCG TAB PO SCH (10:45)
[2023-03-09] MEDS: NIFEdipine ER 30 MG TAB PO SCH (10:46)
[2023-03-09 15:10] LABS: INR 0.93 (0.9-1.15); Prothrombin Time 9.8 sec (9.3-11.8)
[2023-03-10] VITALS (10 sets, daily range): BP systolic 116–132; BP diastolic 54–86; PULSE 56–74; RESP 17–20; TEMP 97.6–98.1; O2SAT 95–100
[2023-03-10] MEDS: LISINOPRIL 5 MG TAB PO SCH ×3 (01:24→21:55)
[2023-03-10] MEDS: PROPRANOLOL HCL 20 MG TAB PO SCH ×3 (05:22→21:54)
[2023-03-10] MEDS: SODIUM CHLOR 0.9% PF (SALINE LOCK) 10ML VIAL/SYR IV SCH ×3 (06:00→21:54)
[2023-03-10] MEDS: InsuLIN REG 1unit/0.01ml Soln (100units/ml) SC SCH ×4 (06:30→21:56)
[2023-03-10] MEDS: ACCU-CHEK COMFORT CURVE STRIP VI SCH ×4 (06:31→21:57)
[2023-03-10 08:06] LABS: Anti-Nuclear Antibody Direct Negative (Negative)
[2023-03-10 08:06] LABS: Antistreptolysin O Antibody 26.2 IU/mL (0.0-200.0)
[2023-03-10] MEDS ORDERED: fentaNYL CITRATE 100 MCG/2 ML VL IV ONE (08:30)
[2023-03-10] MEDS ORDERED: MIDAZOLAM HCL 2MG/2ML 2ml VIAL (1mg/ml) IV ONE (08:30)
[2023-03-10] MEDS: ATORVASTATIN 20 MG TAB PO SCH (09:56)
[2023-03-10] MEDS: FUROSEMIDE 40 MG TAB PO SCH ×2 (09:57→21:55)
[2023-03-10] MEDS: LEVOTHYROXINE SODIUM 112 MCG TAB PO SCH (09:58)
[2023-03-10 13:01] LABS: Hepatitis A Ab IgM Negative; Hepatitis B Core IgM Negative; Hepatitis B Surface Antigen Negative (Negative)
[2023-03-10 13:06] LABS: Hepatitis C Antibody Reactive (Negative)
[2023-03-10] MEDS: HYDROcodone-ACET 5/325MG TAB PO PRN ×2 (14:02→21:56)
[2023-03-10 16:14] LABS: BUN/Creatinine Ratio 14.6 (10.0-20.0); Calcium 7.4 mg/dL (8.5-10.1); Potassium 3.3 mmol/L (3.5-5.1)
[2023-03-10] MEDS ORDERED: POTASSIUM CHL 20 Meq TABLET PO ONE (21:00)
[2023-03-11 05:22] VITALS: BP 136/84; PULSE 64; RESP 20; TEMP 98.5; O2SAT 99
[2023-03-11 05:38] LABS: Calcium 7.5 mg/dL (8.5-10.1); Potassium 3.5 mmol/L (3.5-5.1)
[2023-03-11 05:42] LABS: BUN/Creatinine Ratio 18.1 (10.0-20.0)
[2023-03-11] MEDS: SODIUM CHLOR 0.9% PF (SALINE LOCK) 10ML VIAL/SYR IV SCH ×2 (06:00→13:41)
[2023-03-11] MEDS: InsuLIN REG 1unit/0.01ml Soln (100units/ml) SC SCH ×3 (06:37→16:58)
[2023-03-11] MEDS: ACCU-CHEK COMFORT CURVE STRIP VI SCH ×3 (06:37→16:58)
[2023-03-11] MEDS: PROPRANOLOL HCL 20 MG TAB PO SCH ×2 (06:37→13:40)
[2023-03-11 07:30] VITALS: O2SAT 99
[2023-03-11 08:00] VITALS: BP 131/81; PULSE 57; PULSE 64; RESP 18; TEMP 97.9; O2SAT 99
[2023-03-11] MEDS: ATORVASTATIN 20 MG TAB PO SCH (09:51)
[2023-03-11] MEDS: FUROSEMIDE 40 MG TAB PO SCH (09:51)
[2023-03-11] MEDS: LISINOPRIL 5 MG TAB PO SCH (09:52)
[2023-03-11] MEDS: LEVOTHYROXINE SODIUM 112 MCG TAB PO SCH (09:54)
[2023-03-11] MEDS: LEVOTHYROXINE SODIUM 25 MCG TAB PO SCH (09:58)
[2023-03-11] MEDS: HYDROcodone-ACET 5/325MG TAB PO PRN ×2 (09:59→16:09)
[2023-03-11 12:00] VITALS: BP 146/85; PULSE 55; RESP 16; TEMP 98.1; O2SAT 99
[2023-03-11 13:07] LABS: Anti-dsDNA Antibody 1 IU/mL (0-9)
[2023-03-11 14:09] LABS: COVID19 ANTIGEN SOFIA FIA NEGATIVE (NEGATIVE)
[2023-03-11 16:00] VITALS: BP 145/80; PULSE 60; RESP 18; TEMP 97.9; O2SAT 99
[2023-03-11 17:05] VITALS: BP 145/80; PULSE 60; RESP 18; TEMP 97.9; O2SAT 99
[2023-03-11 18:06] LABS: Antimyeloperoxidase (MPO) Ab <0.2 units (0.0-0.9); Antiproteinase 3 (PR-3) Ab <0.2 units (0.0-0.9)
[2023-03-11 22:06] LABS: Anticardiolipin IgG Antibody <9 GPL U/mL (0-14); Anticardiolipin IgM Antibody 15 MPL U/mL (0-12)
[2023-03-13 09:06] LABS: Antiparietal Cell Antibody 1.7 Units (0.0-20.0)
[2023-03-15 12:06] LABS: Cytoplasmic (C-ANCA) <1:20 titer (Neg:<1:20); Perinuclear (P-ANCA) <1:20 titer (Neg:<1:20)
== END 2023-03-11 18:33 | DRG 640 ==
LOC: ER 14:48 → TELE 18:52 → TELE-CENTR 03-08 17:43
PROVIDERS: ADMIT Family Medicine; ATTEND Family Medicine
PROC: 0T903ZX Drainage of Right Kidney, Percutaneous Approach, Diagnostic (ICD-10-PCS; principal; 2023-03-10)
DX: E87.6 Hypokalemia (principal); E43 Unspecified severe protein-calorie malnutrition; I50.33 Acute on chronic diastolic (congestive) heart failure; N04.9 Nephrotic syndrome with unspecified morphologic changes; I13.0 Hypertensive heart and chronic kidney disease with heart failure and stage 1 through stage 4 chronic kidney disease, or unspecified chronic kidney disease; J44.1 Chronic obstructive pulmonary disease with (acute) exacerbation; N17.9 Acute kidney failure, unspecified; E11.51 Type 2 diabetes mellitus with diabetic peripheral angiopathy without gangrene; Z20.822 Contact with and (suspected) exposure to COVID-19; E11.22 Type 2 diabetes mellitus with diabetic chronic kidney disease; E78.5 Hyperlipidemia, unspecified; E88.09 Other disorders of plasma-protein metabolism, not elsewhere classified; N18.32 Chronic kidney disease, stage 3b; F41.9 Anxiety disorder, unspecified; B18.2 Chronic viral hepatitis C; E03.9 Hypothyroidism, unspecified; Z86.73 Personal history of transient ischemic attack (TIA), and cerebral infarction without residual deficits; Z79.899 Other long term (current) drug therapy; Z83.3 Family history of diabetes mellitus; Z80.9 Family history of malignant neoplasm, unspecified; Z87.891 Personal history of nicotine dependence; Z68.32 Body mass index [BMI] 32.0-32.9, adult
CPT/HCPCS: 10005; 36415; 71045; 74150; 76775; 77012; 78582; 80048; 80053; 80061; 80074; 81001; 82570; 82962; 83036; 83520; 83735; 83880; 84132; 84156; 84443; 84484; 85025; 85379; 85610; 86038; 86147; 86160; 86225; 86256; 87426; 93005; 93306; 93925; 93971; 96365; 99291; G0378; J2250

== ENCOUNTER 2023-04-10 17:59 | Inpatient (IN) | payer OTHER, MEDICARE, MEDICAID ==
[~2023-04-10] VITALS: Ht 162.6 cm; Wt 87.7 kg
[~2023-04-10 17:59] MED LIST changes: +ATOR20TA50 PO; -AZIT500T66 PO; +FURO1TAB31 PO; -LEVO500T31 PO; -METR500T PO; -PRED20TA2 PO; +PROP60CA34 PO; -TAMIFLU PO; +TRAZ-228 PO
[2023-04-10 19:03] LABS: Basophils # (auto) 0 10 ^3/uL (0-0.2); Basophils % (auto) 0.3 % (0.0-2.0); Eosinophils # (auto) 0 10 ^3/uL (0-0.8); Hematocrit 30.5 % (41.0-53.0); Hemoglobin 10.3 g/dL (13.5-17.5); Lymphocytes % (auto) 7.6 % (10.0-50.0); Mean Corpuscular Hemoglobin 31.6 pg (28.0-32.0); Mean Corpuscular Hgb Conc. 33.7 g/dL (32.0-36.0); Mean Corpuscular Volume 93.8 fL (80.0-100.0); Monocytes # (auto) 0.4 10 ^3/uL (0-1.3); Monocytes % (auto) 3.1 % (0.0-12.0); Neutrophils # (auto) 11.7 10 ^3/uL (1.6-8.6); Red Blood Cells 3.25 10^6/uL (4.5-5.90); Red Cell Distribution Width 14.5 % (11.8-14.3); White Blood Cell 13.1 10^3/uL (4.4-10.8)
[2023-04-10 19:25] LABS: Alanine Aminotransferase 14 U/L (7-40); Albumin 2.4 g/dL (3.2-4.8); Alkaline Phosphatase 91 U/L (46-116); Anion Gap 8.1 (5-15); Aspartate Aminotransferase 21 U/L (13-40); BUN/Creatinine Ratio 15.3 (10.0-20.0); Bilirubin, Total < 0.2 mg/dL (0.2-1.0); Blood Urea Nitrogen 39 mg/dL (9-23); Calcium 7.2 mg/dL (8.7-10.4); Carbon Dioxide 15.9 mmol/L (20-30); Chloride 109 mmol/L (98-107); Glucose 147 mg/dL (74-106); Potassium 3.2 mmol/L (3.5-5.1); Sodium 133 mmol/L (136-145); Total Protein 4.8 g/dL (5.7-8.2)
[2023-04-10 23:04] LABS: Urine Bacteria NONE SEEN /hpf (None Seen); Urine Blood TRACE /uL (Negative); Urine Clarity Clear (Clear); Urine Color Colorless (Yellow); Urine Hyaline Cast FEW /lpf (0 - 2); Urine Protein, UAD 3+ (Negative); Urine Specific Gravity 1.016 (1.001-1.035); Urine Urobilinogen Normal (Negative); Urine WBC <1 /hpf (0 - 3); Urine pH 6.5 (5.0-8.0)
[2023-04-11 01:30] VITALS: PULSE 71; RESP 16; O2SAT 99
[2023-04-11] MEDS ORDERED: ACETAMINOPHEN 500 MG TAB PO ONE (04:30)
[2023-04-11] MEDS ORDERED: ALBUTEROL SULF 2.5 MG/0.5ML(0.5%) NEB SOLN NEB PRN (07:00)
[2023-04-11] MEDS ORDERED: ONDANSETRON HCL 4 MG/2 ML VIAL IV PRN (07:00)
[2023-04-11] MEDS ORDERED: FUROSEMIDE 40 MG/4 ML VIAL IV ONE (07:00)
[2023-04-11] MEDS ORDERED: POTASSIUM CHL 20 Meq TABLET PO ONE (07:00)
[2023-04-11] MEDS ORDERED: ACETAMINOPHEN 325 MG TAB PO PRN (07:00)
[2023-04-11 07:48] VITALS: PULSE 71; RESP 14; O2SAT 98
[2023-04-11 08:10] LABS: Chloride 107 mmol/L (98-107); Potassium 3.3 mmol/L (3.5-5.1); Sodium 134 mmol/L (136-145)
[2023-04-11 08:11] LABS: Anion Gap 8.5 (5-15); Calcium 7.5 mg/dL (8.5-10.1); Carbon Dioxide 18.5 mmol/L (20-30)
[2023-04-11 08:16] LABS: BUN/Creatinine Ratio 17.4 (10.0-20.0); Blood Urea Nitrogen 45 mg/dL (9-23); Glucose 131 mg/dL (74-106)
[2023-04-11] MEDS: methylPREDNISolone SOD SUCC 40 MG/ML VL IV SCH (09:59)
[2023-04-11] MEDS: PANTOPRAZOLE 40 MG TAB PO SCH (09:59)
[2023-04-11] MEDS ORDERED: LISINOPRIL 20 MG TAB PO SCH ×2 (10:00)
[2023-04-11] MEDS: FUROSEMIDE 100 MG/10ML VIAL IV SCH ×2 (12:41→18:00)
[2023-04-11] MEDS ORDERED: DEXTROSE (50%) 50ML SYRG IV PRN (14:30)
[2023-04-11] MEDS: ACCU-CHEK COMFORT CURVE STRIP VI SCH ×2 (17:11→23:38)
[2023-04-11] MEDS: InsuLIN REG 1unit/0.01ml Soln (100units/ml) SC SCH ×2 (17:18→23:40)
[2023-04-11] MEDS ORDERED: FUROSEMIDE 40 MG TAB PO SCH (18:00)
[2023-04-11 22:45] VITALS: BP 122/59; PULSE 65; RESP 18; TEMP 97.4; O2SAT 98
[2023-04-11 23:25] VITALS: BP 131/74; PULSE 64; RESP 18; TEMP 97.7; O2SAT 99
[2023-04-12] VITALS (9 sets, daily range): BP systolic 143–149; BP diastolic 71–90; PULSE 58–98; RESP 16–21; TEMP 97.5–98.1; O2SAT 96–100
[2023-04-12] MEDS ORDERED: SPIR25TA8 PO (04:04)
[2023-04-12] MEDS ORDERED: METF-370 PO (04:04)
[2023-04-12] MEDS: FUROSEMIDE 100 MG/10ML VIAL IV SCH (05:30)
[2023-04-12 06:03] LABS: Basophils # (auto) 0.1 10 ^3/uL (0-0.2); Basophils % (auto) 0.4 % (0.0-2.0); Eosinophils # (auto) 0 10 ^3/uL (0-0.8); Hematocrit 38.2 % (41.0-53.0); Hemoglobin 12.6 g/dL (13.5-17.5); Lymphocytes # (auto) 1.4 10 ^3/uL (0.4-5.4); Lymphocytes % (auto) 9.3 % (10.0-50.0); Mean Corpuscular Hemoglobin 31.8 pg (28.0-32.0); Mean Corpuscular Hgb Conc. 33.1 g/dL (32.0-36.0); Mean Corpuscular Volume 96.1 fL (80.0-100.0); Monocytes # (auto) 0.7 10 ^3/uL (0-1.3); Monocytes % (auto) 4.4 % (0.0-12.0); Neutrophils # (auto) 13.3 10 ^3/uL (1.6-8.6); Neutrophils % (auto) 85.9 % (37.0-80.0); Red Blood Cells 3.98 10^6/uL (4.5-5.90); White Blood Cell 15.5 10^3/uL (4.4-10.8)
[2023-04-12 06:21] LABS: Alanine Aminotransferase 23 U/L (7-40); Albumin 2.5 g/dL (3.2-4.8); Alkaline Phosphatase 81 U/L (46-116); Anion Gap 11.5 (5-15); Aspartate Aminotransferase 20 U/L (13-40); Bilirubin, Total 0.2 mg/dL (0.2-1.0); Calcium 7.6 mg/dL (8.7-10.4); Carbon Dioxide 15.5 mmol/L (20-30); Chloride 109 mmol/L (98-107); Glucose 115 mg/dL (74-106); Potassium 3.9 mmol/L (3.5-5.1); Sodium 136 mmol/L (136-145); Total Protein 4.9 g/dL (5.7-8.2)
[2023-04-12] MEDS: InsuLIN REG 1unit/0.01ml Soln (100units/ml) SC SCH ×4 (06:23→21:55)
[2023-04-12] MEDS: ACCU-CHEK COMFORT CURVE STRIP VI SCH ×4 (06:23→21:52)
[2023-04-12 07:22] LABS: Creatinine, Urine 84.5 mg/dL (30.0-125.0)
[2023-04-12 07:24] LABS: Protein, Urine 1237.5 mg/dL (0.0-11.9); Urine Protein/Creatinine Ratio 14.64
[2023-04-12 07:47] LABS: BUN/Creatinine Ratio 23.3 (10.0-20.0); Blood Urea Nitrogen 67 mg/dL (9-23)
[2023-04-12] MEDS ORDERED: ONDANSETRON HCL 4 MG/2 ML VIAL IV PRN (09:30)
[2023-04-12] MEDS: MORPHINE SULFATE INJ 2 MG/ml SYRG IV PRN ×2 (09:59→17:52)
[2023-04-12] MEDS: LISINOPRIL 20 MG TAB PO SCH (10:01)
[2023-04-12] MEDS: methylPREDNISolone SOD SUCC 40 MG/ML VL IV SCH (10:01)
[2023-04-12] MEDS: PANTOPRAZOLE 40 MG TAB PO SCH (10:01)
[2023-04-12] MEDS: HYDROcodone-ACET 5/325MG TAB PO PRN (11:18)
[2023-04-12] MEDS: FUROSEMIDE 20 MG TAB PO SCH (12:16)
[2023-04-13] VITALS (9 sets, daily range): BP systolic 138–185; BP diastolic 72–105; PULSE 61–77; RESP 16–20; TEMP 97.5–98; O2SAT 97–100
[2023-04-13] MEDS: ACCU-CHEK COMFORT CURVE STRIP VI SCH ×4 (06:26→22:34)
[2023-04-13] MEDS: InsuLIN REG 1unit/0.01ml Soln (100units/ml) SC SCH ×4 (06:26→22:34)
[2023-04-13 06:39] LABS: Anion Gap 10.6 (5-15); Carbon Dioxide 14.4 mmol/L (20-30); Chloride 111 mmol/L (98-107); Potassium 3.4 mmol/L (3.5-5.1); Sodium 136 mmol/L (136-145)
[2023-04-13 06:40] LABS: Calcium 7.6 mg/dL (8.7-10.4)
[2023-04-13 06:45] LABS: Glucose 109 mg/dL (74-106)
[2023-04-13 06:53] LABS: Blood Urea Nitrogen 42 mg/dL (9-23)
[2023-04-13 06:55] LABS: BUN/Creatinine Ratio 14.8 (10.0-20.0)
[2023-04-13] MEDS: LISINOPRIL 20 MG TAB PO SCH ×2 (08:33→10:00)
[2023-04-13] MEDS: FUROSEMIDE 20 MG TAB PO SCH (08:33)
[2023-04-13] MEDS: methylPREDNISolone SOD SUCC 40 MG/ML VL IV SCH (08:34)
[2023-04-13] MEDS ORDERED: POTASSIUM EFFERVESENT TAB 25 MEQ PO ONE (09:00)
[2023-04-13] MEDS ORDERED: LISINOPRIL 20 MG TAB PO ONE (12:45)
[2023-04-13] MEDS: HYDROcodone-ACET 5/325MG TAB PO PRN ×2 (17:09→23:48)
[2023-04-13] MEDS: SODIUM BICARBONATE 650 MG TAB PO SCH ×2 (17:09→22:29)
[2023-04-13] MEDS: MORPHINE SULFATE INJ 2 MG/ml SYRG IV PRN ×2 (18:22→22:23)
[2023-04-13] MEDS ORDERED: MORPHINE SULFATE 4 MG/ML SYR/VIAL IV PRN (21:30)
[2023-04-13] MEDS ORDERED: PANTOPRAZOLE 40 MG/10 ML VIAL INJ IV ONE (21:30)
[2023-04-13] MEDS ORDERED: NITROGLYCERIN 0.4 MG SL TAB SL PRN (21:30)
[2023-04-13] MEDS: hydrALAZINE HCL 20 MG/ML VL IV PRN (23:51)
[2023-04-14] MEDS ORDERED: TEMAZEPAM 15 MG CAP PO ONE (02:30)
[2023-04-14 05:00] VITALS: BP 114/54; PULSE 70; RESP 18; TEMP 97.9; O2SAT 94
[2023-04-14] MEDS: SODIUM BICARBONATE 650 MG TAB PO SCH ×3 (06:21→23:45)
[2023-04-14] MEDS: InsuLIN REG 1unit/0.01ml Soln (100units/ml) SC SCH ×4 (06:21→22:00)
[2023-04-14] MEDS: ACCU-CHEK COMFORT CURVE STRIP VI SCH ×4 (06:21→22:00)
[2023-04-14] MEDS: MORPHINE SULFATE INJ 2 MG/ml SYRG IV PRN ×3 (06:30→20:49)
[2023-04-14 09:00] VITALS: BP 104/64; PULSE 67; RESP 16; TEMP 98; O2SAT 98
[2023-04-14] MEDS: predniSONE 20 MG TAB PO SCH (10:32)
[2023-04-14] MEDS: FUROSEMIDE 20 MG TAB PO SCH (10:34)
[2023-04-14] MEDS: LISINOPRIL 20 MG TAB PO SCH (10:35)
[2023-04-14 11:05] LABS: Anion Gap 11.8 (5-15); Carbon Dioxide 14.2 mmol/L (20-30); Chloride 112 mmol/L (98-107); Potassium 3.3 mmol/L (3.5-5.1); Sodium 138 mmol/L (136-145)
[2023-04-14 11:06] LABS: Calcium 7.4 mg/dL (8.5-10.1)
[2023-04-14 11:11] LABS: BUN/Creatinine Ratio 17.5 (10.0-20.0); Blood Urea Nitrogen 48 mg/dL (9-23); Glucose 80 mg/dL (74-106)
[2023-04-14 13:00] VITALS: BP 134/84; PULSE 98; RESP 21; TEMP 98; O2SAT 98
[2023-04-14 17:00] VITALS: BP 145/102; PULSE 104; RESP 20; TEMP 98; O2SAT 97
[2023-04-14] MEDS: HYDROcodone-ACET 5/325MG TAB PO PRN (17:17)
[2023-04-14 20:00] VITALS: PULSE 85; RESP 17; O2SAT 98
[2023-04-14 22:00] VITALS: BP 121/75; PULSE 85; RESP 17; TEMP 98.6; O2SAT 98
[2023-04-15 05:00] VITALS: BP 173/75; PULSE 90; RESP 20; TEMP 98.4; O2SAT 98
[2023-04-15] MEDS: InsuLIN REG 1unit/0.01ml Soln (100units/ml) SC SCH ×4 (05:31→22:30)
[2023-04-15] MEDS: ACCU-CHEK COMFORT CURVE STRIP VI SCH ×4 (05:32→22:46)
[2023-04-15] MEDS: SODIUM BICARBONATE 650 MG TAB PO SCH ×3 (05:48→22:40)
[2023-04-15] MEDS: hydrALAZINE HCL 20 MG/ML VL IV PRN (06:05)
[2023-04-15] MEDS: MORPHINE SULFATE INJ 2 MG/ml SYRG IV PRN ×3 (06:06→23:14)
[2023-04-15 06:39] LABS: Chloride 109 mmol/L (98-107); Potassium 3.3 mmol/L (3.5-5.1); Sodium 139 mmol/L (136-145)
[2023-04-15 06:40] LABS: Anion Gap 13.6 (5-15); Calcium 7.6 mg/dL (8.5-10.1); Carbon Dioxide 16.4 mmol/L (20-30)
[2023-04-15 06:45] LABS: BUN/Creatinine Ratio 29.5 (10.0-20.0); Glucose 86 mg/dL (74-106)
[2023-04-15 06:56] LABS: Blood Urea Nitrogen 81 mg/dL (9-23)
[2023-04-15 06:58] LABS: Basophils # (auto) 0 10 ^3/uL (0-0.2); Basophils % (auto) 0.1 % (0.0-2.0); Eosinophils # (auto) 0 10 ^3/uL (0-0.8); Hematocrit 29.8 % (41.0-53.0); Hemoglobin 10.2 g/dL (13.5-17.5); Lymphocytes # (auto) 0.7 10 ^3/uL (0.4-5.4); Lymphocytes % (auto) 4.9 % (10.0-50.0); Mean Corpuscular Hemoglobin 32.2 pg (28.0-32.0); Mean Corpuscular Hgb Conc. 34.1 g/dL (32.0-36.0); Mean Corpuscular Volume 94.3 fL (80.0-100.0); Monocytes # (auto) 0.6 10 ^3/uL (0-1.3); Monocytes % (auto) 4.1 % (0.0-12.0); Neutrophils # (auto) 13.7 10 ^3/uL (1.6-8.6); Neutrophils % (auto) 90.9 % (37.0-80.0); Red Blood Cells 3.17 10^6/uL (4.5-5.90); Red Cell Distribution Width 15.1 % (11.8-14.3); White Blood Cell 15.1 10^3/uL (4.4-10.8)
[2023-04-15 08:00] VITALS: BP 133/70; PULSE 89; RESP 23; TEMP 98; O2SAT 95
[2023-04-15] MEDS: predniSONE 20 MG TAB PO SCH (09:19)
[2023-04-15] MEDS: LISINOPRIL 20 MG TAB PO SCH (09:19)
[2023-04-15] MEDS: HYDROcodone-ACET 5/325MG TAB PO PRN (09:20)
[2023-04-15] MEDS: FUROSEMIDE 20 MG TAB PO SCH (09:20)
[2023-04-15] MEDS: ENOXAPARIN SOD 30 MG/0.3 ML SYRINGE SC SCH (09:21)
[2023-04-15] MEDS: SPIRONOLACTONE 25 MG TAB PO SCH ×2 (11:39→17:27)
[2023-04-15 11:57] LABS: Alanine Aminotransferase 30 U/L (7-40); Alkaline Phosphatase 61 U/L (46-116); Aspartate Aminotransferase 32 U/L (13-40)
[2023-04-15 11:58] LABS: Bilirubin, Direct < 0.1 mg/dL (<0.3); Bilirubin, Total 0.2 mg/dL (0.2-1.0); Total Protein 3.9 g/dL (5.7-8.2)
[2023-04-15 12:00] VITALS: BP 152/69; PULSE 89; RESP 22; TEMP 97.9; O2SAT 100
[2023-04-15 16:00] VITALS: BP 163/71; PULSE 78; RESP 22; TEMP 98.2; O2SAT 98
[2023-04-15 20:00] VITALS: PULSE 76; RESP 18; O2SAT 93
[2023-04-15 22:17] VITALS: BP 156/90; PULSE 76; RESP 18; TEMP 97.9; O2SAT 93
[2023-04-16] MEDS: HYDROcodone-ACET 5/325MG TAB PO PRN ×2 (03:06→15:12)
[2023-04-16 05:20] VITALS: BP 158/77; PULSE 67; RESP 18; TEMP 97.5; O2SAT 98
[2023-04-16 06:26] LABS: Basophils # (auto) 0 10 ^3/uL (0-0.2); Eosinophils # (auto) 0 10 ^3/uL (0-0.8); Eosinophils % (auto) 0.1 % (0.0-7.0); Hematocrit 28.5 % (41.0-53.0); Hemoglobin 9.7 g/dL (13.5-17.5); Lymphocytes # (auto) 0.7 10 ^3/uL (0.4-5.4); Lymphocytes % (auto) 4.4 % (10.0-50.0); Mean Corpuscular Hemoglobin 31.5 pg (28.0-32.0); Mean Corpuscular Hgb Conc. 33.9 g/dL (32.0-36.0); Mean Corpuscular Volume 92.9 fL (80.0-100.0); Monocytes # (auto) 0.5 10 ^3/uL (0-1.3); Monocytes % (auto) 3.2 % (0.0-12.0); Neutrophils # (auto) 14.9 10 ^3/uL (1.6-8.6); Neutrophils % (auto) 92.3 % (37.0-80.0); Nucleated Red Blood Cells % 0.1 %; Red Blood Cells 3.07 10^6/uL (4.5-5.90); Red Cell Distribution Width 15.2 % (11.8-14.3); White Blood Cell 16.1 10^3/uL (4.4-10.8)
[2023-04-16] MEDS: SODIUM BICARBONATE 650 MG TAB PO SCH ×3 (06:37→21:45)
[2023-04-16] MEDS: SPIRONOLACTONE 25 MG TAB PO SCH ×2 (06:37→17:39)
[2023-04-16] MEDS: InsuLIN REG 1unit/0.01ml Soln (100units/ml) SC SCH ×4 (06:38→22:01)
[2023-04-16] MEDS: ACCU-CHEK COMFORT CURVE STRIP VI SCH ×4 (06:38→21:57)
[2023-04-16 07:44] LABS: Chloride 107 mmol/L (98-107); Potassium 3.3 mmol/L (3.5-5.1); Sodium 136 mmol/L (136-145)
[2023-04-16 07:45] LABS: Calcium 7.7 mg/dL (8.5-10.1)
[2023-04-16 07:50] LABS: Blood Urea Nitrogen 72 mg/dL (9-23); Glucose 136 mg/dL (74-106)
[2023-04-16 08:00] VITALS: BP 175/75; PULSE 69; PULSE 82; RESP 20; RESP 24; TEMP 97.4; O2SAT 94; O2SAT 99
[2023-04-16 10:04] LABS: BUN/Creatinine Ratio 26.8 (10.0-20.0)
[2023-04-16] MEDS ORDERED: POTASSIUM CHL 20 Meq TABLET PO ONE (10:15)
[2023-04-16 10:50] LABS: Triglycerides 147 mg/dL (< 150)
[2023-04-16 10:51] LABS: LDL Cholesterol 99 mg/dL (< 100)
[2023-04-16] MEDS: ENOXAPARIN SOD 30 MG/0.3 ML SYRINGE SC SCH (10:51)
[2023-04-16] MEDS: predniSONE 20 MG TAB PO SCH (10:52)
[2023-04-16] MEDS: LISINOPRIL 20 MG TAB PO SCH (10:52)
[2023-04-16 10:53] LABS: Cholesterol 199 mg/dL (< 200); HDL Cholesterol 66 mg/dL (40-59)
[2023-04-16] MEDS: FUROSEMIDE 20 MG TAB PO SCH (10:53)
[2023-04-16] MEDS: MORPHINE SULFATE INJ 2 MG/ml SYRG IV PRN ×3 (10:55→21:46)
[2023-04-16 13:25] VITALS: BP 154/106; PULSE 87; RESP 15; TEMP 97.5; O2SAT 97
[2023-04-16 16:54] VITALS: BP 150/83; PULSE 77; RESP 22; TEMP 98.7; O2SAT 98
[2023-04-16 20:00] VITALS: O2SAT 96
[2023-04-16] MEDS: hydrALAZINE HCL 20 MG/ML VL IV PRN (21:46)
[2023-04-16 22:00] VITALS: BP 177/97; PULSE 85; RESP 20; TEMP 98.3; O2SAT 97
[2023-04-17] MEDS: HYDROcodone-ACET 5/325MG TAB PO PRN ×3 (00:52→17:53)
[2023-04-17] MEDS: MORPHINE SULFATE INJ 2 MG/ml SYRG IV PRN ×2 (02:36→07:12)
[2023-04-17 05:00] VITALS: BP 198/100; PULSE 80; RESP 17; TEMP 97.7; O2SAT 97
[2023-04-17] MEDS: hydrALAZINE HCL 20 MG/ML VL IV PRN (05:29)
[2023-04-17] MEDS: SPIRONOLACTONE 25 MG TAB PO SCH ×2 (05:33→17:52)
[2023-04-17] MEDS: SODIUM BICARBONATE 650 MG TAB PO SCH ×2 (05:33→14:23)
[2023-04-17] MEDS: ACCU-CHEK COMFORT CURVE STRIP VI SCH ×3 (05:35→17:53)
[2023-04-17] MEDS: InsuLIN REG 1unit/0.01ml Soln (100units/ml) SC SCH ×3 (06:03→17:56)
[2023-04-17 08:00] VITALS: BP 170/86; PULSE 92; RESP 20; TEMP 98.4; O2SAT 96
[2023-04-17] MEDS ORDERED: BUMETANIDE 2.5mg/10ml (0.25 mg/ml) INJ IV ONE (09:00)
[2023-04-17] MEDS: FUROSEMIDE 20 MG TAB PO SCH (09:55)
[2023-04-17] MEDS: LISINOPRIL 20 MG TAB PO SCH (09:55)
[2023-04-17] MEDS: ENOXAPARIN SOD 30 MG/0.3 ML SYRINGE SC SCH (09:56)
[2023-04-17] MEDS: predniSONE 20 MG TAB PO SCH (09:56)
[2023-04-17 10:10] LABS: Chloride 109 mmol/L (98-107); Potassium 3.5 mmol/L (3.5-5.1); Sodium 137 mmol/L (136-145)
[2023-04-17 10:11] LABS: Anion Gap 10.7 (5-15); Calcium 7.9 mg/dL (8.5-10.1); Carbon Dioxide 17.3 mmol/L (20-30)
[2023-04-17 10:16] LABS: BUN/Creatinine Ratio 29.9 (10.0-20.0); Blood Urea Nitrogen 72 mg/dL (9-23); Glucose 190 mg/dL (74-106)
[2023-04-17 13:00] VITALS: BP 149/84; PULSE 85; RESP 20; TEMP 97.6; O2SAT 98
[2023-04-17] MEDS ORDERED: FUR20T PO (13:23)
[2023-04-17] MEDS ORDERED: SODI650T PO (13:23)
[2023-04-17] MEDS ORDERED: SPIR25TA PO (13:23)
[2023-04-17] MEDS ORDERED: LISI20TA56 PO (13:23)
[2023-04-17] MEDS ORDERED: PRED20TA2 PO (13:23)
[2023-04-17] MEDS ORDERED: HYDR-4902 PO (13:30)
[2023-04-17 16:49] VITALS: BP 153/53; PULSE 75; RESP 18; TEMP 98.1; O2SAT 95
[2023-04-17 16:57] VITALS: BP 149/84; PULSE 85; RESP 20; TEMP 97.6; O2SAT 98
== END 2023-04-17 18:00 | disposition home health service (06) | DRG 684 ==
LOC: ER 17:59 → OVERFLOW 04-11 06:53 → WEST WING 04-11 22:25
PROVIDERS: ADMIT Nurse Practitioner; ATTEND Nurse Practitioner Acute Care
DX: I12.9 Hypertensive chronic kidney disease with stage 1 through stage 4 chronic kidney disease, or unspecified chronic kidney disease (principal); E11.22 Type 2 diabetes mellitus with diabetic chronic kidney disease; D63.8 Anemia in other chronic diseases classified elsewhere; E87.6 Hypokalemia; E66.9 Obesity, unspecified; F41.9 Anxiety disorder, unspecified; R07.9 Chest pain, unspecified; R60.9 Edema, unspecified; E78.5 Hyperlipidemia, unspecified; J44.9 Chronic obstructive pulmonary disease, unspecified; N18.32 Chronic kidney disease, stage 3b; Z83.3 Family history of diabetes mellitus; Z68.34 Body mass index [BMI] 34.0-34.9, adult; Z87.891 Personal history of nicotine dependence; Z91.119 Patient's noncompliance with dietary regimen due to unspecified reason; Z86.19 Personal history of other infectious and parasitic diseases; Z87.441 Personal history of nephrotic syndrome
CPT/HCPCS: 36415; 71046; 80048; 80053; 80061; 80076; 81001; 82570; 82962; 83036; 83880; 84156; 84443; 84484; 85025; 93005; 93306; 93970; 96372; 96374; 96375; 97110; 97116; 97163; 97530; C9113; G0378; J1815

== ENCOUNTER 2023-06-03 02:42 | Emergency (ER) | payer MEDICARE, MEDICAID ==
[~2023-06-03] VITALS: Ht 177.8 cm; Wt 110.0 kg
[2023-06-03 02:42] VITALS: PULSE 0; RESP 0; O2SAT 0
[~2023-06-03 02:42] MED LIST changes: +FUR20T PO; -FURO1TAB31 PO; +HYDR-4902 PO; +LISI20TA56 PO; +METF-370 PO; +PRED20TA2 PO; -PROP60CA34 PO; +SODI650T PO; +SPIR25TA PO; -TRAZ-228 PO
== END 2023-06-03 02:49 ==
LOC: EDBD 02:42 → ER 02:47
DX: I46.9 Cardiac arrest, cause unspecified (principal); I13.0 Hypertensive heart and chronic kidney disease with heart failure and stage 1 through stage 4 chronic kidney disease, or unspecified chronic kidney disease; E11.22 Type 2 diabetes mellitus with diabetic chronic kidney disease; N18.9 Chronic kidney disease, unspecified; I50.9 Heart failure, unspecified; J44.9 Chronic obstructive pulmonary disease, unspecified; M19.90 Unspecified osteoarthritis, unspecified site; F41.9 Anxiety disorder, unspecified; E78.5 Hyperlipidemia, unspecified; Z86.73 Personal history of transient ischemic attack (TIA), and cerebral infarction without residual deficits; Z79.1 Long term (current) use of non-steroidal anti-inflammatories (NSAID); Z79.899 Other long term (current) drug therapy